=== PATIENT | female | born 1945 | race Caucasian/White ===

== ENCOUNTER 2016-09-10 07:29 | Day surgery (SDC) | payer MEDICARE ==
[2016-08-29 10:48] VITALS: BMI 29.7
[~2016-09-10 07:29] MED LIST: LACTATED RINGERS 1,000 ML IV SCH
[2016-09-10 07:55] VITALS: RESP 18; TEMP 98
[2016-09-10] MEDS ORDERED: MIDAZOLAM 2 MG/2 ML VIAL ONE (08:14)
[2016-09-10] MEDS ORDERED: fentaNYL (PF) 50 MCG/ML 2 ML AMP ONE (08:14)
--- NOTE | 2016-09-10 08:45 | P.PCN ---
Date of Procedure: 09/10/16 Preoperative Diagnosis: Left meralgia paresthetica Postoperative Diagnosis: Same as above Procedure(s) Performed: Left lateral cutaneous femoral nerve block under ultrasound guidance Anesthesia: MAC Surgeon: Nohelia Puga Pathology: none sent Condition: stable Disposition: PACU Description of Procedure: The patient was seen in preop holding area consent was obtained then she was brought into the procedure room and placed in the supine position. Skin was prepped with DuraPrep and draped in a sterile manner. Lidocaine 1% was used to numb the skin up at the target point. I then used ultrasound to try to find the lateral femoral cutaneous nerve on the left side which was found on the lateral edge of the sartorius muscle and superficial to it and deep to the fascia isaias getting . I then used 22-gauge 3-1/2 inch Quincke spinal needle to go through the skin and to infiltrate 5 MLS of Marcaine 0.25% +40 mg of Kenalog around the nerve. Patient tolerated procedure well.
[2016-09-10] MEDS ORDERED: IV FLUID CONTINUATION 1,000 ML IV ONE (09:30)
[2016-09-10 09:37] VITALS: BP 128/65; PULSE 68
== END 2016-09-10 09:31 | disposition home or self-care (01) ==
LOC: ORPAIN 07:29
PROVIDERS: ATTEND Anesthesiology
DX: G57.12 Meralgia paresthetica, left lower limb (principal); E66.9 Obesity, unspecified; Z68.29 Body mass index [BMI] 29.0-29.9, adult; Z88.2 Allergy status to sulfonamides
CPT/HCPCS: 64447; 76942; J2250; J3010

== ENCOUNTER → 2016-11-12 | Outpatient (CLI) | payer MEDICARE ==
--- NOTE | 2016-11-12 10:53 | WWHP ---
DATE OF SERVICE: 11/12/2016 CHIEF COMPLAINT: The patient is here for her routine gynecologic exam and mammogram. HPI: This is a 71-year-old, G2, P2 with an LMP of 1988. The patient is without gynecologic complaints. PAST MEDICAL HISTORY: Chronic hypertension, arthritis, seasonal allergies, chronic back problems and osteopenia. MEDICATIONS: 1. Atenolol 100 mg daily. 2. Enalapril 5 mg daily. 3. Calcium supplement 600 mg daily. 4. Multivitamin 1 daily. Allergies to SULFA. PAST SURGICAL HISTORY: D&C in 2010, ankle surgery in the past, colonoscopy 2002 and 2014 and wisdom teeth removed in 2015. 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 Family history is unchanged from the 2013 H&P. SOCIAL HISTORY: She denies tobacco and drug use and infrequently drinks alcohol. She has been a since 1996 and is not seeing anybody at this time. REVIEW OF SYSTEMS: She has lost about 24 pounds over the last year. She denies respiratory, cardiac, or GI problems. : She occasionally cannot get to the bathroom quick enough and can leak urine in this manner. She denies maltreatment or falling. PHYSICAL EXAM: Blood pressure 124/81. Height 5 feet 6 inches. Weight 191 pounds. Temperature 97.4, pulse 79. This a well-developed, well-nourished white female who is alert and oriented x3 in no acute distress. HEENT is within normal limits. NECK: Supple without mass or thyromegaly. CHEST AND LUNGS: Clear to auscultation. HEART: Regular rate and rhythm. Breasts are without mass or discharge. Axillary exam is negative for adenopathy. BACK: Negative for CVA tenderness. ABDOMEN: Soft, nontender without palpable masses. PELVIC EXAM: External genitalia reveals mild to moderate atrophy without lesions. Cervix and vagina reveal mild to moderate atrophy without lesions. There is no evidence of prolapse. The uterus is midposition, nongravid size and nontender. There are no palpable adnexal masses or tenderness. Rectovaginal exam is negative for mass or tenderness and is negative for occult blood. EXTREMITIES: Nontender. IMPRESSION: 1. A 71-year-old menopausal female with normal gynecologic exam. 2. Osteopenia. PLAN: 1. Pap smear was deferred, since she had a normal one last year. 2. Self breast examination was discussed. 3. Mammogram will be done today. 4. Osteoporosis prevention was discussed. Will plan on repeating bone density test in approximately 2 years. 5. She did receive her flu shot this past fall. 6. She will return in one year.
--- NOTE | 2016-11-13 11:11 | MM ---
Reason for exam: screening (asymptomatic). Last mammogram was performed 1 year and 1 month ago. History: Patient is postmenopausal. Family history of breast cancer in mother at age 52. Physical Findings: A clinical breast exam by your physician is recommended on an annual basis and results should be correlated with mammographic findings. MG 3D Screening Mammo W/Cad Bilateral CC and MLO view(s) were taken. Prior study comparison: October 17, 2015, bilateral MG screening mammo w CAD. August 30, 2013, bilateral digital screening mammo w/CAD. The breast tissue is almost entirely fat. No significant changes when compared with prior studies. ASSESSMENT: Benign, BI-RAD 2 RECOMMENDATION: Routine screening mammogram of both breasts in 1 year.
== END | disposition home or self-care (01) ==
LOC: WWCWWP 09:52
PROVIDERS: ATTEND Obstetrics & Gynecology
DX: Z12.31 Encounter for screening mammogram for malignant neoplasm of breast (principal); I10 Essential (primary) hypertension; M19.90 Unspecified osteoarthritis, unspecified site; M85.80 Other specified disorders of bone density and structure, unspecified site; Z88.2 Allergy status to sulfonamides; Z78.0 Asymptomatic menopausal state; Z80.3 Family history of malignant neoplasm of breast; Z79.899 Other long term (current) drug therapy
CPT/HCPCS: 77063; G0202

== ENCOUNTER 2016-12-23 08:12 | Day surgery (SDC) | payer MEDICARE ==
[2016-12-22 10:32] VITALS: BMI 30.5
[2016-12-23] MEDS ORDERED: LIDOCAINE 1% 20 ML VIAL (10MG/ML) FOR IV START INTRADERMA ONE (08:25)
[2016-12-23 08:43] VITALS: RESP 16; TEMP 98.5
[2016-12-23] MEDS ORDERED: MIDAZOLAM 2 MG/2 ML VIAL ONE (09:44)
[2016-12-23] MEDS ORDERED: BUPIVACAINE (PF) 0.5% 30 ML VIAL ONE (09:44)
[2016-12-23] MEDS ORDERED: TRIAMCINOLONE ACETONIDE 40 MG/ML 1 ML VIAL ONE (09:44)
[2016-12-23] MEDS ORDERED: fentaNYL (PF) 50 MCG/ML 2 ML AMP ONE (09:44)
[2016-12-23] MEDS ORDERED: IV FLUID CONTINUATION 1,000 ML IV ONE (10:15)
--- NOTE | 2016-12-23 10:18 | P.PCN ---
Date of Procedure: 12/23/16 Procedure(s) Performed: Preoperative diagnoses= 1-left meralgia paresthetica 2-lumbar spondylosis Postoperative diagnoses= same as preoperative diagnosis. Procedure= left lateral femoral cutaneous nerve block with ultrasound guidance Anesthesia= conscious sedation with Versed 1 mg and fentanyl 50 micrograms and local infiltration with lidocaine 1% 2 ml Estimated blood loss=minimal. Procedure indication= the patient had a history of severe chronic low back pain , and left lower extremity pain and numbness and tingling sensation, diagnosed with left meralgia paresthetica, and lumbar spondylosis unresponsive to conservative treatment , patient had left side lateral femoral cutaneous nerves done a few weeks ago and she had excellent pain relief for several weeks and she is here today to have , a second injection Procedure description= the patient was seen and identified in the preoperative holding area, risks and benefits and alternative of the procedure and possible complications discussed with the patient, and he agreed with the preceding, patient signed the consent, an IV was started, and vital signs were monitored and were stable throughout the procedure, patient was placed in the supine position or table and the left groin and abdominal area ,was prepped and draped with a sterile fashion, vital signs were closely monitored during the procedure , the ultrasound probe used to identify the left lateral femoral cutaneous nerve , which was located at the lateral edge of the left side.sartorius muscle , local infiltration of the skin and subcutaneous tissue with lidocaine 1% 2 mL then a 20-gauge block needle advanced slowly under ultrasound and passed through the fascia acosta, and the temporalis superficial and lateral to the sartorius muscle, , and after appropriate needle placement confirmed , and after negative aspiration for heme and CSF and there was no paresthesia during the injection, 5 ml of Marcaine 0.5% and 40 mg of Kenalog injected after negative aspiration, the needle removed, Patient tolerated the procedure well without any complication, after the the block area was cleaned and a Band-Aid applied, the patient transported to recovery room in stable condition and he was monitored for 30 minutes before he was discharged home and then patient was reexamined before going home and patient was discharged in stable condition and patient will follow up with the pain clinic in a few weeks
[2016-12-23 10:33] VITALS: BP 136/70; PULSE 59
== END 2016-12-23 10:56 | disposition home or self-care (01) ==
LOC: ORPAIN 08:12
PROVIDERS: ATTEND Specialist
DX: G89.29 Other chronic pain (principal); G57.12 Meralgia paresthetica, left lower limb; M47.9 Spondylosis, unspecified; Z88.2 Allergy status to sulfonamides
CPT/HCPCS: 64447; 99152; J2250; J3301; J3010

== ENCOUNTER → 2017-02-09 | Outpatient (CLI) | payer MEDICARE ==
[2017-02-09 12:56] VITALS: BP 141/88; PULSE 97; RESP 18; TEMP 97.5
--- NOTE | 2017-02-09 13:14 | P.PN ---
Progress Note - Text Patient returns for followup for chronic back pain with radiation to LLE. Patient recently underwent lateral femoral cutaneous NB x 2, which provided some relief for 1-2 weeks' interval apiece. Patient continues on ibuprofen OTC medications for pain with good relief. Patient denies adverse drug effects from medications. Today, pt denies new-onset weakness, bowel/bladder incontinence, or any other signs or symptoms of cauda equina syndrome. There are no signs of acute intoxication, and no indications of medication diversion or overuse. In addition to above, 13-point review of systems is also negative for chest pain , shortness of breath, changes in vision, changes in hearing, new onset weakness , abdominal pain, diarrhea, extreme fatigue, malaise, fever, skin changes, homicidal or suicidal ideation, or bowel or bladder incontinence. Vital Signs: Reviewed in EMR Gen: WDWN, AAOx3, NAD HEENT: NCAT, EOMI, hearing grossly normal Pulm: resp unlabored Abd: soft, NT, ND Neck: supple, trachea midline ROM in flexion lumbar spine: reduced ROM in extension lumbar spine: reduced Lumbar paravertebral tenderness: + Facet loading: + bilateral, R > L SI joint tenderness: R > L Ryan's test: R > L Straight leg raise: + LLE at 10 degrees Lower extremity: decreased strength dorsi/plantarflexion LLE compared to RLE Neuro: CN II-XII grossly intact, muscle strength lower extremities PRESERVED Imaging: Reviewed in EMR Assessment: 1. lumbar spinal stenosis 2. lumbar spondylosis 3. lumbar neural foraminal stenosis Plan: 1. Explanation: Opioid and psychological risk scores were reviewed. Diagnoses , prognoses, and multiple treatment options including but not limited to physical therapy, interventional therapies, adjuvant medical therapies, narcotic medication therapies, and surgery were discussed with the patient and all questions were answered to the patient's satisfaction. 2. Opioid agreement: no opioids prescribed today 3. Counseling: The patient was counseled extensively on SMOKING CESSATION, BODY MASS INDEX, EXERCISE. Specifically, the patient was instructed regarding the importance of smoking cessation, obesity, and exercise in the context of both chronic pain and overall health. 4. Procedures: LESI (left paramedian approach) 5. Consultations: None 6. Investigations: None 7. Medications: none prescribed 8. Disposition: f/u for procedure as scheduled PQRS measures: 1-Patient's medications are documented in the chart. 2-Tobacco use is negative 3-Patient has not had a pneumococcal vaccine. 4-Advanced care planning discussed, patient unable to give. 5-Opioid contract signed with the patient. 6-Pain positive, follow-up visit or procedure scheduled 7-Patient's blood pressure measured and documented, and patient will follow up with the primary care due to hypertension. 8-Patient's weight was measured, and body mass index ABOVE the normal limits, and counseling was done. Patient instructed to follow up with PCP. 9-Patient WAS NOT identified as an unhealthy alcohol user.
== END ==
LOC: PNWHC3 12:22
PROVIDERS: ATTEND Anesthesiology
DX: M48.06 Spinal stenosis, lumbar region (principal); M99.73 Connective tissue and disc stenosis of intervertebral foramina of lumbar region; M47.816 Spondylosis without myelopathy or radiculopathy, lumbar region; G89.29 Other chronic pain; Z79.891 Long term (current) use of opiate analgesic
CPT/HCPCS: 99211

== ENCOUNTER 2017-03-12 06:20 | Day surgery (SDC) | payer MEDICARE ==
[2017-03-06 11:59] VITALS: BMI 30.5
[2017-03-12 06:38] VITALS: RESP 16; TEMP 97
[2017-03-12] MEDS ORDERED: LIDOCAINE 1% 20 ML VIAL (10MG/ML) FOR IV START INTRADERMA ONE (06:40)
[2017-03-12] MEDS ORDERED: DEXAMETHASONE SOD PHOS (MDV) 100 MG/10 ML VIAL ONE (07:09)
[2017-03-12] MEDS ORDERED: IOHEXOL 180 MG/ML 1 ML ML ONE (07:09)
[2017-03-12] MEDS ORDERED: fentaNYL (PF) 50 MCG/ML 2 ML AMP ONE (07:09)
[2017-03-12] MEDS ORDERED: MIDAZOLAM 2 MG/2 ML VIAL ONE (07:09)
--- NOTE | 2017-03-12 07:23 | P.PCN ---
Date of Procedure: 03/12/17 Preoperative Diagnosis: Postoperative Diagnosis: Procedure(s) Performed: PREOPERATIVE DIAGNOSIS: 1- Lumbar spinal stenosis. 2-Lumbar spondylosis with Facet arthropathy without myelopathy POSTOPERATIVE DIAGNOSIS: 1-Lumber spinal stenosis 2-Lumbar spondylosis with Facet arthropathy without myelopathy PROCEDURE 1. Lumbar epidural steroid injection under fluoroscopic guidance at the L4-5 level.(left paramedial approach ) 2. Lumbar epidurogram. ANESTHESIA: Local with 1% lidocaine 3 ml and IV sedation with Versed 1 mg , and fentanyle 50 Mcg EBL: Minimal PROCEDURE INDICATION: The patient with low back pain and radiculitis symptoms unresponsive to conservative treatment. Fluoroscopy was used to optimize visualization of the needle placement and to maximize safety. PROCEDURE DESCRIPTION / TECHNIQUE: The patient was seen and identified in the preoperative area. Risks, benefits , complications including but not limited to infections ,bleeding ,allergic reaction to the medications ,nerve damage and not complete pain releife , and alternatives were discussed with the patient. The patient agreed to proceed with the procedure and signed the consent. IV was started, and vital signs were stable. Patient was taken to the OR and time out was completed. The patient was placed in the prone position on procedure table and a pillow was placed under the abdomen to reduce lumbar lordosis. The lumbosacral area was prepped and draped in the usual sterile fashion.ere closely monitored during the procedure. Conscious sedation was used during the procedure to decrease patients anxiety. Vital signs was monitered during the entire procedure. Using anterior-posterior fluoroscopy, the L4-5 interlaminar space was identified and the skin over this site was marked and then infiltrated with 1% lidocaine subcutaneously. Subsequently, a 20-gauge Tuohy epidural needle was inserted and advanced toward the epidural space using the ``Loss of resistance technique and guided by AP and lateral fluoroscopy. The correct needle position in the left side of the epidural space was verified with the injection of 2 mL of the water soluble contrast dye Omnipaque 180 contrast and observing an excellent epidurogram with the epidural spread of the dye, after negative aspiration for blood and CSF and in the absence of paresthesias. Again after negative aspiration, a 6 ml mixture containing 20 mg of Dexamethasone and 2 ml of preservative free Normal Saline, and 2 ml of preservative free lidocaine 1 % solution was injected and a washout of epidurogram was seen. Needle was withdrawn intact, skin was cleansed, and bandages were applied. COMPLICATIONS: None DISPOSITION / PLANS: The patient was placed in a supine position and transferred to the recovery area in a stable condition for observation. There was no evidence of lower extremity motor or sensory deficit after the procedure. Patient was discharged from the recovery room after meeting discharge criteria. Home discharge instructions were given to the patient by the staff. The patient was reexamined prior to discharge. The patient will schedule a follow up in the clinic in 2-4 weeks. Implants: Indications for Procedure: Operative Findings: Description of Procedure:
[2017-03-12] MEDS ORDERED: IV FLUID CONTINUATION 1,000 ML IV ONE (07:25)
--- NOTE | 2017-03-12 07:30 | FL ---
FLUOROSCOPY 4 seconds of fluoroscopy time were utilized during Pain Injection. 1 images document the procedure.
[2017-03-12 07:40] VITALS: BP 121/70; PULSE 80
== END 2017-03-12 07:55 | disposition home or self-care (01) ==
LOC: ORPAIN 06:20
PROVIDERS: ATTEND Specialist
DX: M48.06 Spinal stenosis, lumbar region (principal); M47.26 Other spondylosis with radiculopathy, lumbar region; M46.96 Unspecified inflammatory spondylopathy, lumbar region; Z88.2 Allergy status to sulfonamides
CPT/HCPCS: 62323; J2250; Q9965; J3010; J1100

== ENCOUNTER 2017-04-07 08:50 | Day surgery (SDC) | payer MEDICARE ==
[2017-04-03 14:11] VITALS: BMI 30.5
[~2017-04-07 08:50] MED LIST changes: +LACTATED RINGERS 1,000 ML IV ONE; -LACTATED RINGERS 1,000 ML IV SCH
[2017-04-07 09:14] VITALS: RESP 16; TEMP 97.8
[2017-04-07] MEDS ORDERED: LIDOCAINE 1% 20 ML VIAL (10MG/ML) FOR IV START SQ ONE (09:23)
--- NOTE | 2017-04-07 10:16 | P.PCN ---
Date of Procedure: 04/07/17 Preoperative Diagnosis: Lumbar stenosis Postoperative Diagnosis: Lumbar stenosis Procedure(s) Performed: Lumbar epidural steroid injection under fluoroscopic guidance Implants: Anesthesia: other (Moderate conscious sedation with 50 g of fentanyl IV and 0.5 mg of Versed) Surgeon: Nohelia Puga Pathology: none sent Condition: stable Disposition: PACU Indications for Procedure: Operative Findings: Description of Procedure: The patient was seen in preoperative holding area consent was obtained then she was brought into the procedure room and placed in prone position. The skin was prepped with Betadine 3 and draped in a sterile manner. Lidocaine 1% was used to numb the skin up at the target point that was at the L3-4 level in the left paramedian approach. I used 18-gauge 6 inch Touhy epidural needle with loss-of- resistance to air to identify the epidural space. There was positive loss-of- resistance to air at about 10 cm from skin negative aspiration for any CSF or blood and negative paresthesia I then injected 1 mL of Omnipaque which showed typical epidurogram with AP and lateral views of fluoroscopy after that I injected 40 mg of Kenalog +2 MLS of Marcaine 0.25% +4 MLS of preservative free normal saline to a total volume of 7 MLS in epidural space. Patient tolerated procedure well.
[2017-04-07] MEDS ORDERED: IV FLUID CONTINUATION 1,000 ML IV ONE (10:25)
--- NOTE | 2017-04-07 10:33 | FL ---
Fluoroscopy INDICATION: Pain FINDINGS: Fluoroscopy time: 10 seconds. Images obtained: 2. IMPRESSIONS: 1. Documentation of fluoroscopy.
[2017-04-07 10:40] VITALS: BP 141/70; PULSE 70
== END 2017-04-07 10:57 | disposition home or self-care (01) ==
LOC: ORPAIN 08:50
PROVIDERS: ATTEND Anesthesiology
DX: M48.06 Spinal stenosis, lumbar region (principal); I10 Essential (primary) hypertension; Z88.2 Allergy status to sulfonamides
CPT/HCPCS: 62323; 99152; J2250; J3301; Q9965; J3010; 99153

== ENCOUNTER 2017-05-06 10:05 | Day surgery (SDC) | payer MEDICARE ==
[2017-05-04 10:03] VITALS: BMI 30.5
[~2017-05-06 10:05] MED LIST changes: -LACTATED RINGERS 1,000 ML IV ONE; +LACTATED RINGERS 1,000 ML IV SCH
[2017-05-06 10:16] VITALS: RESP 16; TEMP 98.4
[2017-05-06] MEDS ORDERED: LIDOCAINE 1% 20 ML VIAL (10MG/ML) FOR IV START INTRADERMA ONE (10:29)
--- NOTE | 2017-05-06 11:24 | P.PCN ---
Date of Procedure: 05/06/17 Preoperative Diagnosis: Postoperative Diagnosis: Procedure(s) Performed: Implants: Indications for Procedure: Operative Findings: Description of Procedure: Preoperative Diagnosis: Lumbar stenosis Postoperative Diagnosis: Lumbar stenosis Procedure(s) Performed: Lumbar epidural steroid injection under fluoroscopic guidance Implants: Anesthesia: other (Moderate conscious sedation with 25 g of fentanyl IV and 0.5 mg of Versed) Surgeon: Nohelia Puga Pathology: none sent Condition: stable Disposition: PACU Description of Procedure: The patient was seen in preoperative holding area consent was obtained then she was brought into the procedure room and placed in prone position. The skin was prepped with Betadine 3 and draped in a sterile manner. Lidocaine 1% was used to numb the skin up at the target point that was at the L3-4 level in the left paramedian approach. I used 18-gauge 6 inch Touhy epidural needle with loss-of- resistance to air to identify the epidural space. There was positive loss-of- resistance to air at about 10 cm from skin negative aspiration for any CSF or blood and negative paresthesia I then injected 1 mL of Omnipaque which showed typical epidurogram with AP and lateral views of fluoroscopy after that I injected 40 mg of Kenalog +2 MLS of Marcaine 0.25% +4 MLS of preservative free normal saline to a total volume of 7 MLS in epidural space. Patient tolerated procedure well.
[2017-05-06] MEDS ORDERED: IV FLUID CONTINUATION 1,000 ML IV ONE (11:35)
--- NOTE | 2017-05-06 11:39 | FL ---
EXAMINATION TYPE: FL guided pain mgmt statistic DATE OF EXAM: 05/06/2017 COMPARISON: NONE HISTORY: Lumbar pain TECHNIQUE: Fluoroscopy. FINDINGS/IMPRESSION: Fluoroscopic guidance was provided during procedure performed by Dr. Puga. A total of 19 seconds of fluoroscopic time was utilized during the procedure and 2 spot images was ac quired.
[2017-05-06 11:47] VITALS: BP 119/63; PULSE 64
== END 2017-05-06 12:01 | disposition home or self-care (01) ==
LOC: ORPAIN 10:05
PROVIDERS: ATTEND Anesthesiology
DX: M48.06 Spinal stenosis, lumbar region (principal); I10 Essential (primary) hypertension; Z88.2 Allergy status to sulfonamides
CPT/HCPCS: 62323; 99152; J2250; J3301; Q9965; J3010

== ENCOUNTER → 2017-05-21 | Outpatient (CLI) | payer MEDICARE ==
[2017-05-21 11:11] VITALS: BP 166/92; PULSE 67; RESP 18; TEMP 99.3
--- NOTE | 2017-05-21 11:21 | P.PN ---
Progress Note - Text Patient returns for followup for chronic back pain with radiation to LLE. Patient recently underwent LESI x 3 which has given her excellent relief after all three injections. Patient continues on ibuprofen OTC medications for pain with good relief. Patient denies adverse drug effects from medications. Today , pt denies new-onset weakness, bowel/bladder incontinence, or any other signs or symptoms of cauda equina syndrome. There are no signs of acute intoxication, and no indications of medication diversion or overuse. In addition to above, 13-point review of systems is also negative for chest pain , shortness of breath, changes in vision, changes in hearing, new onset weakness , abdominal pain, diarrhea, extreme fatigue, malaise, fever, skin changes, homicidal or suicidal ideation, or bowel or bladder incontinence. Vital Signs: Reviewed in EMR Gen: WDWN, AAOx3, NAD HEENT: NCAT, EOMI, hearing grossly normal Pulm: resp unlabored Abd: soft, NT, ND Neck: supple, trachea midline ROM in flexion lumbar spine: reduced ROM in extension lumbar spine: reduced Lumbar paravertebral tenderness: + Facet loading: + bilateral SI joint tenderness: + LLE Ryan's test: neg Straight leg raise: + LLE at 5 degrees Neuro: CN II-XII grossly intact, muscle strength lower extremities PRESERVED Imaging: Reviewed in EMR Assessment: 1. lumbar spinal stenosis 2. lumbar spondylosis 3. lumbar neural foraminal stenosis Plan: 1. Explanation: Opioid and psychological risk scores were reviewed. Diagnoses , prognoses, and multiple treatment options including but not limited to physical therapy, interventional therapies, adjuvant medical therapies, narcotic medication therapies, and surgery were discussed with the patient and all questions were answered to the patient's satisfaction. 2. Opioid agreement: no opioids prescribed today 3. Counseling: The patient was counseled extensively on BODY MASS INDEX, EXERCISE. Specifically, the patient was instructed regarding the importance of obesity, and exercise in the context of both chronic pain and overall health. 4. Procedures: none for now 5. Consultations: None 6. Investigations: None 7. Medications: none prescribed 8. Disposition: f/u as needed. Patient can call and schedule further LESIs as needed. PQRS measures: 1-Patient's medications are documented in the chart. 2-Tobacco use is negative 3-Patient has not had a pneumococcal vaccine. 4-Advanced care planning discussed, patient unable to give. 5-Opioid contract signed with the patient. 6-Pain positive, follow-up visit or procedure scheduled 7-Patient's blood pressure measured and documented, and patient will follow up with the primary care due to hypertension. 8-Patient's weight was measured, and body mass index ABOVE the normal limits, and counseling was done. Patient instructed to follow up with PCP. 9-Patient WAS NOT identified as an unhealthy alcohol user.
== END | disposition home or self-care (01) ==
LOC: PNWHC3 10:55
PROVIDERS: ATTEND Anesthesiology
DX: M48.06 Spinal stenosis, lumbar region (principal); M99.73 Connective tissue and disc stenosis of intervertebral foramina of lumbar region; M47.816 Spondylosis without myelopathy or radiculopathy, lumbar region; Z79.1 Long term (current) use of non-steroidal anti-inflammatories (NSAID)
CPT/HCPCS: 99211

== ENCOUNTER → 2017-11-24 | Outpatient (CLI) | payer MEDICARE ==
[2017-11-24 09:29] VITALS: BP 159/83; PULSE 82; RESP 18; TEMP 97.1; BMI 33.0
--- NOTE | 2017-11-24 10:21 | P.HPOB ---
History of Present Illness H&P Date: 11/24/17 Chief Complaint: The patient is here for her routine gynecologic exam and mammogram. This is a 72 year old with LMP of 1988. The patient is without gynecologic complaints and denies any postmenopausal bleeding. Review of Systems Patient has gained about 14 pounds over the last year. She denies respiratory, cardiac, or G.I. problems. She denies maltreatment or falling. she infrequently has small amount of leakage which is not a very big problem for her. Past Medical History Past Medical History: Hypertension, Musculoskeletal Disorder Additional Past Medical History / Comment(s): LT SCIATIC PAIN. Arthritis, seasonal allergies and osteopenia. History of Any Multi-Drug Resistant Organisms: None Reported Past Surgical History: Orthopedic Surgery, Tubal Ligation Additional Past Surgical History / Comment(s): D&C. RT ankle surgery CHILD. PAIN PROCEDURE. Colonoscopy 2002 and 2014. [place] teeth removed in 2015. Past Anesthesia/Blood Transfusion Reactions: Previous Problems w/ Anesthesia Additional Past Anesthesia/Blood Transfusion Reaction / Comment(s): HAD DIFFICULTY WAKING UP WITH ANESTHESIA Past Psychological History: No Psychological Hx Reported Smoking Status: Never smoker Past Alcohol Use History: Rare (Four drinks per year.) Past Drug Use History: None Reported - Past Family History Sister(s) Family Medical History: Cancer (Rectal cancer and MS.) Additional Family Medical History / Comment(s): RECTAL CA , MS Mother Family Medical History: Cancer (Breast cancer.) Additional Family Medical History / Comment(s): BREAST Father Family Medical History: Cancer (Prostate cancer.) Additional Family Medical History / Comment(s): BONE Brother(s) Family Medical History: Cancer (Lung cancer.) Additional Family Medical History / Comment(s): LUNG Medications and Allergies Home Medications Medication Instructions Recorded Confirmed Type Calcium Carbonate/Vitamin D3 1 each PO DAILY 01/18/15 11/24/17 History [Calcium 600 + Vit D Tablet] Enalapril [Vasotec] 5 mg PO QAM 01/18/15 11/24/17 History Multivitamins, Thera [Theragran] 1 each PO DAILY 01/18/15 11/24/17 History Metoprolol Bunch/Hydrochlorothiaz 1 each PO DAILY 11/24/17 11/24/17 History [Metoprolol ER-Hctz 100-12.5 mg] Allergies Allergy/AdvReac Type Severity Reaction Status Date / Time Sulfa (Sulfonamide Allergy Swelling Verified 11/24/17 09:37 Antibiotics) Exam - Vital Signs Vital signs: Vital Signs Temp Pulse Resp BP 11/24/17 09:23 97.1 F L 82 18 159/83 Intake and Output 11/23/17 11/24/17 11/24/17 22:59 06:59 14:59 Other: Weight 92.986 kg Height 5'6". BMI 33. This is a well-developed well-nourished white female who is alert and oriented times 3 in no acute distress. HEENT: Within normal limits. NECK: Supple without mass or thyromegaly. CHEST AND LUNGS: Clear to auscultation. HEART: Regular rate and rhythm. BREASTS: Are without mass or discharge. AXILLARY EXAM: Negative for adenopathy. BACK: Negative for CVA tenderness. ABDOMEN: Soft, nontender, without palpable masses. PELVIC EXAM: Normal external genitalia with mild to moderate atrophy. Cervix and vagina appear normal with moderate atrophy. The cervix is stenotic secondary to atrophy. There is no unusual discharge. There is no evidence of prolapse. The uterus is midposition, nongravid size and nontender. There are no palpable adnexal masses or tenderness. RECTAL EXAM: rectovaginal exam is negative for mass or tenderness and is negative for occult blood. EXTREMITIES: Nontender. IMPRESSION: 1. 72 year old menopausal female with normal gynecologic exam. 2. History of osteopenia. PLAN: 1. Pap smear was performed. 2. Self breast examination was discussed. 3. Screening mammogram will be done today. 4. Osteoporosis prevention was discussed. Bone density screening will be done next year. 5. She did receive a flu shot last fall. 6. She is aware that her blood pressure was elevated today. She will do home blood pressure checks and follow-up with Dr. Coates for blood pressure elevations. 7. She will return in one year.
--- NOTE | 2017-11-25 12:57 | MM ---
Reason for exam: screening (asymptomatic). Last mammogram was performed 1 year ago. History: Patient is postmenopausal. Family history of breast cancer in mother at age 52. Physical Findings: A clinical breast exam by your physician is recommended on an annual basis and results should be correlated with mammographic findings. MG 3D Screening Mammo W/Cad Bilateral CC and MLO view(s) were taken. Prior study comparison: November 12, 2016, bilateral MG 3d screening mammo w/cad. October 17, 2015, bilateral MG screening mammo w CAD. The breast tissue is almost entirely fat. Finding: There are typically benign round calcifications in both breasts. There is a chronic nodularity in the left breast, skin lesions. There is no discrete abnormality. ASSESSMENT: Benign, BI-RAD 2 RECOMMENDATION: Routine screening mammogram of both breasts in 1 year.
== END | disposition home or self-care (01) ==
LOC: WWCWWP 09:02
PROVIDERS: ATTEND Obstetrics & Gynecology
DX: Z12.31 Encounter for screening mammogram for malignant neoplasm of breast (principal)
CPT/HCPCS: 77063; 77067

== ENCOUNTER → 2018-11-30 | Outpatient (CLI) | payer MEDICARE ==
[2018-11-30 09:33] VITALS: BP 135/90; PULSE 87; RESP 16; TEMP 98; BMI 33.9
--- NOTE | 2018-11-30 10:27 | P.HPOB ---
History of Present Illness H&P Date: 11/30/18 Chief Complaint: The patient is here for her routine gynecologic exam and ma mmogram. This is a 73-year-old with an LMP of 1988. The patient is without gynecologic complaints and denies any postmenopausal bleeding. The patient had a previous abnormal Pap smear showing ascus on 11/24/2017. Reflex high-risk HPV testing was negative. Review of Systems She is getting about 4 pounds over the last year. She denies respiratory, cardiac and G.I. problems. She denies maltreatment or problems with falling. : she denies any significant problems with urinary leakage, but she states if she does not empty her bladder completely, she can have a small amount of leakage immediately after getting off the toilet. Past Medical History Past Medical History: Hypertension, Musculoskeletal Disorder Additional Past Medical History / Comment(s): LT SCIATIC PAIN. Arthritis, seasonal allergies and osteopenia. 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 She did have a cold knife colonization of the search for high grade changes Pap smear [id number]. History of Any Multi-Drug Resistant Organisms: None Reported Past Surgical History: Orthopedic Surgery, Tubal Ligation Additional Past Surgical History / Comment(s): H/S, D&C and CKC of cervix 2010. RT ankle surgery CHILD. PAIN PROCEDURE. Colonoscopy 2002 and 2014. Onward teeth removed in 2015. Past Anesthesia/Blood Transfusion Reactions: Previous Problems w/ Anesthesia Additional Past Anesthesia/Blood Transfusion Reaction / Comment(s): HAD DIFFICULTY WAKING UP WITH ANESTHESIA Past Psychological History: No Psychological Hx Reported Smoking Status: Never smoker Past Alcohol Use History: Rare (6 per year) Past Drug Use History: None Reported Additional History: She has been a since 1996 and is not seeing anybody at this time. - Past Family History Sister(s) Family Medical History: Cancer Additional Family Medical History / Comment(s): RECTAL CA , MS Mother Family Medical History: Cancer Additional Family Medical History / Comment(s): BREAST CA Father Family Medical History: Cancer Additional Family Medical History / Comment(s): Prostate CA with bone CA. Brother(s) Family Medical History: Cancer Additional Family Medical History / Comment(s): LUNG Medications and Allergies Home Medications Medication Instructions Recorded Confirmed Type Calcium Carbonate/Vitamin D3 1 each PO DAILY 01/18/15 11/30/18 History [Calcium 600 + Vit D Tablet] Enalapril [Vasotec] 5 mg PO QAM 01/18/15 11/30/18 History Multivitamins, Thera [Theragran] 1 each PO DAILY 01/18/15 11/30/18 History Metoprolol Bunch/Hydrochlorothiaz 1 each PO DAILY 11/24/17 11/30/18 History [Metoprolol ER-Hctz 100-12.5 mg] Fish Oil/Dha/Epa [Fish Oil 1,200 1 each PO 11/30/18 History mg Fish Oil] Allergies Allergy/AdvReac Type Severity Reaction Status Date / Time Sulfa (Sulfonamide Allergy Swelling Verified 11/30/18 09:34 Antibiotics) Exam Vital Signs Temp Pulse Resp BP Pulse Ox 11/30/18 09:24 98.0 F 87 16 135/90 98 Intake and Output 11/29/18 11/30/18 11/30/18 22:59 06:59 14:59 Other: Weight 95.254 kg Height 5'6", weight 210 pounds, BMI 34. This is a well-developed well-nourished white female who is alert and oriented times 3 in no acute distress. HEENT: Within normal limits. NECK: Supple without mass or thyromegaly. CHEST AND LUNGS: Clear to auscultation. HEART: Regular rate and rhythm. BREASTS: Are without mass or discharge. AXILLARY EXAM: Negative for adenopathy. BACK: Negative for CVA tenderness. ABDOMEN: Soft, nontender, without palpable masses. PELVIC EXAM: Normal external genitalia with moderate atrophy. Cervix and vagina appear normal with moderate atrophy. The service is fairly flush with the back of the vagina consistent with previous colonization of the cervix and atrophy. There are no cervical lesions. There is no unusual discharge. There is no evidence of prolapse. The uterus is midposition, nongravid size and nontender. There are no palpable adnexal masses or tenderness. RECTAL EXAM: rectovaginal exam is negative for mass or tenderness and is negative for occult blood. EXTREMITIES: Nontender. IMPRESSION: 1. 73-year-old menopausal female with normal gynecologic exam. 2. Previous ascus Pap smear with negative high-risk HPV reflex testing last year. 3. History of osteopenia PLAN: 1. Pap smear with high-risk HPV testing(co-test) was obtained today. 2. Self breast awareness was discussed with the patient. 3. Screening mammogram will be done today. 4. Osteoporosis prevention was discussed. I have stressed the importance of adequate calcium, vitamin D and regular exercise. Recommended amounts of calcium and vitamin D were also discussed. Bone density testing will be done today. 5. She did receive a flu shot this past fall. 6. She will return in one year.
--- NOTE | 2018-11-30 13:07 | BD ---
EXAMINATION TYPE: Axial Bone Density DATE OF EXAM: 11/30/2018 COMPARISON: 10.17.2015 CLINICAL HISTORY: 73 YR OLD FEMALE....ICD-10 CODE: Z78.0 POST MENOPAUSAL Height: 64.4 Weight: 207 FRAX RISK QUESTIONS: NOTHING ADDITIONAL TO NOTE HERE RISK FACTORS HISTORY OF: Postmenopausal woman: YES AT AGE 54 Lost more than 2 inches in height since high school: YES MEDICATIONS: Additional Medications: BP MEDS, CALCIUM WITH D, REFLUX MEDS PRN, Additional History: ARTHRITIS IN BACK, WALKS WITH UNEVEN GAIT, RT HIP HIGHER THAN LT EXAM MEASUREMENTS: Bone mineral densitometry was performed using the UpTo System. Bone mineral density as measured about the Lumbar spine is: ----- L1-L4(G/cm2): 1.529 T Score Values are as follows: ----- L1: 2.3 ----- L2: 3.6 ----- L3: 3.4 ----- L4: 2.3 ----- L1-L4: 2.9 Bone mineral density has: Decreased -1.1ince study of: 10.17.2015 Bone mineral density about the R hip (g/cm2): 0.871 Bone mineral density about the L hip (g/cm2): 1.073 T Score values are as follows: -----R Neck: -0.9 -----L Neck: -0.3 -----R Total: -1.1 -----L Total: 0.5 Bone mineral density has: Decreased -3.3ince study of: 10.17.2015 FRAX%s: THERE IS A 8.1% CHANCE FOR A MAJOR OSTEOPOROTIC FX AND A 0.8% FOR HIP.....PROBABILITY OF FX IN 10 YRS TIME IMPRESSION: Osteopenia (T Score between -2.5 and -1). There is slightly increased risk of fracture and the patient may be considered for treatment. Re-Screen 2-5 years. NOTE: T-SCORE=SD OF THE YOUNG ADULT MEAN.
--- NOTE | 2018-11-30 13:30 | MM ---
Reason for exam: screening (asymptomatic). Last mammogram was performed 1 year ago. History: Patient is postmenopausal. Family history of breast cancer in mother at age 52. Took hormonal contraceptives for 9 years. Physical Findings: A clinical breast exam by your physician is recommended on an annual basis and results should be correlated with mammographic findings. MG 3D Screening Mammo W/Cad Bilateral CC and MLO view(s) were taken. Prior study comparison: November 24, 2017, bilateral MG 3d screening mammo w/cad. November 12, 2016, bilateral MG 3d screening mammo w/cad. There are scattered fibroglandular densities. No suspicious abnormality. No significant changes when compared with prior studies. ASSESSMENT: Negative, BI-RAD 1 RECOMMENDATION: Routine screening mammogram of both breasts in 1 year.
== END ==
LOC: WWCWWP 09:14
PROVIDERS: ATTEND Obstetrics & Gynecology
DX: Z12.31 Encounter for screening mammogram for malignant neoplasm of breast (principal); M85.80 Other specified disorders of bone density and structure, unspecified site; Z78.0 Asymptomatic menopausal state
CPT/HCPCS: 77063; 77067; 77080

== ENCOUNTER → 2019-10-19 | Day surgery (SDC) | payer MEDICARE, OTHER ==
[2019-10-17 15:12] VITALS: BMI 32.8
[~2019-10-19] MED LIST changes: +BALANCED SALT IRRIG SOLN COMB2 15 ML IRRIG.SOLN INTRAOCULA ONE; +DEXAMETHASONE SOD PHOSPHATE 10 MG/ML 1 ML VIAL IV ONE; +EPINEPHrine (PF) 0.3 ML in BALANCED SALT IRRIG SOLN COMB2 500 ML IRRIGATION ONE; +HYALURONATE SODIUM INTRAOCULAR 1 EACH SYRINGE (12MG/ML) INTRAOCULA ONE; +LIDOCAINE 1% (PF) 10MG/ML VIAL MISCELLANE ONE; +LIDOCAINE 1% 20 ML VIAL (10MG/ML) FOR IV START INTRADERMA PRN; +MIDAZOLAM 2 MG/2 ML VIAL ONE; +MOXIFLOXACIN HCL 0.5% DROPS 3 ML BTL OP ONE; +ONDANSETRON 4 MG/2 ML VIAL IVP ONE; +TETRACAINE 0.5% OPHTH (PF) DROPS 4 ML BTL OP ONE; +TIMOLOL 0.5% OPHTH DROPS 5 ML BTL OP ONE; +fentaNYL (PF) 50 MCG/ML 2 ML AMP ONE
[2019-10-19] MEDS: CYCLOPENTOLATE 1% OPHTH SOLN 2 ML BTL OP ONE ×3 (12:20→12:34)
[2019-10-19] MEDS: PHENYLEPHRINE 2.5% OPHTH DRP 2ML OP NR ×3 (12:24→12:42)
[2019-10-19 12:28] VITALS: RESP 16; TEMP 97.4
--- NOTE | 2019-10-19 14:07 | P.OP ---
Date of Procedure: 10/19/19 Preoperative Diagnosis: NS & CS & Reg astig Postoperative Diagnosis: same Procedure(s) Performed: PIOL, OD Implants: BL1UT 18 x 12.5 Anesthesia: MAC Surgeon: Rahat Baptiste Pathology: none sent Condition: stable Disposition: same day Indications for Procedure: blurry vision Operative Findings: no complications
[2019-10-19 14:36] VITALS: BP 115/55; PULSE 65
--- NOTE | 2019-10-20 06:57 | OP ---
OPERATIVE REPORT DATE OF SURGERY: October 19, 2019. PROCEDURE: Phacoemulsification of cataract and intraocular lens implant of the right eye. PREOPERATIVE DIAGNOSES: Nuclear sclerosis, cortical sclerosis and regular astigmatism. POSTOPERATIVE DIAGNOSES: Nuclear sclerosis, cortical sclerosis and regular astigmatism. SURGEON: Dr. Rahat Baptiste. ANESTHESIA: Topical. ESTIMATED BLOOD LOSS: None. SPECIMEN TAKEN: None. NARRATIVE: After obtaining the appropriate consent, the patient was brought to the operating room. There she was asked to sit upright and the axes 0 and 180 degrees were identified and marked on the patient's cornea using a gentian eulogio marker. She was then placed in the proper supine position under cardiac monitoring, prepped and draped in the usual sterile manner. She was approached from her right temporal side. Using previously acquired corneal topography information, the axis of 170 degrees was identified and marked with a corneal marking instrument. This was followed by using an MVR blade at the 11 o'clock position to create a paracentesis port. Through this opening, 1% Xylocaine MPF 50:50 mix with balanced salt solution was injected into the anterior chamber. This was followed by stabilization of the anterior chamber with Amvisc. At the 9 o'clock position a 2.75 mm clayton keratome was used to create a self-sealing flap incision in a Langerman's fashion. Through this opening, a cystotome was introduced to begin a continuous tear capsulorrhexis which was then completed using the Utrata forceps. Care was taken to ensure that the size of the ring was at least 5.5 mm in diameter, which was confirmed by the Naomi ring which had been previously placed on the patient's cornea. Hydrodissection and hydrodelineation of the lens was accomplished with balanced salt solution. Phacoemulsification of the lens utilizing phaco chop was accomplished in 11.7 seconds at 14% power. Additional Xylocaine MPF was instilled into the anterior chamber. This was followed by removal of the remaining cortex under irrigation and aspiration along with careful polishing of the posterior capsule in the capsule vacuum mode. Additional Amvisc was then used to stabilize the capsular bag using both Carmen and Drew capsule polishing instruments, the anterior capsular leaflet as well as the equator of the bag were cleaned to the greatest extent possible in all 360 degrees. At this point, the temporal incision was enlarged slightly and a Bausch and Lomb Trulign model BL1UT 18 diopter by a 1.25 diopter posterior chamber intraocular lens was then inserted into the capsular bag without difficulty. The irrigation aspiration instrument was then introduced to remove the remaining cortex as well as to position the intraocular lens in the appropriate orientation at the defined 170 degree axis. Once all remaining viscoelastic was then removed from the anterior chamber and in and around the intraocular lens slight pressure against the posterior capsule was applied to the anterior surface of the implant to lock its orientation within the capsular bag. At this point, the irrigation aspiration instrument was gently removed from the anterior chamber. The temporal incision was hydrated slightly with balanced salt solution and the eye was brought to normal intraocular pressures through the paracentesis port. To ensure watertight integrity, ReSure was used on the paracentesis as well as the temporal incision wounds. She then received 2 drops of 1% atropine, 2 drops of 0.5% timolol and 2 drops of moxifloxacin. The eye was then lightly patched and shielded in the usual manner. There were no complications from the procedure. She tolerated the procedure well and then was returned to recovery in good condition. MMODL / IJN: [id number] /
== END | disposition home or self-care (01) ==
LOC: OR 10:50
PROVIDERS: ATTEND Ophthalmology
DX: H25.811 Combined forms of age-related cataract, right eye (principal); H52.223 Regular astigmatism, bilateral; H43.811 Vitreous degeneration, right eye; H52.13 Myopia, bilateral; H52.4 Presbyopia; I10 Essential (primary) hypertension; H02.409 Unspecified ptosis of unspecified eyelid; H91.90 Unspecified hearing loss, unspecified ear; M19.90 Unspecified osteoarthritis, unspecified site; M41.9 Scoliosis, unspecified; Z88.2 Allergy status to sulfonamides; Z98.890 Other specified postprocedural states; Z79.899 Other long term (current) drug therapy; Z97.4 Presence of external hearing-aid; Z97.3 Presence of spectacles and contact lenses; Z83.518 Family history of other specified eye disorder; Z83.511 Family history of glaucoma; Z80.3 Family history of malignant neoplasm of breast; Z80.8 Family history of malignant neoplasm of other organs or systems; Z80.1 Family history of malignant neoplasm of trachea, bronchus and lung; Z83.3 Family history of diabetes mellitus; Z82.69 Family history of other diseases of the musculoskeletal system and connective tissue
CPT/HCPCS: 66984; V2787; C1780; J2250; J0171; J3010; J2001

== ENCOUNTER 2019-11-16 09:30 | Day surgery (SDC) | payer MEDICARE, OTHER ==
[2019-11-14 14:58] VITALS: BMI 32.8
[~2019-11-16 09:30] MED LIST changes: -BALANCED SALT IRRIG SOLN COMB2 15 ML IRRIG.SOLN INTRAOCULA ONE; -DEXAMETHASONE SOD PHOSPHATE 10 MG/ML 1 ML VIAL IV ONE; -EPINEPHrine (PF) 0.3 ML in BALANCED SALT IRRIG SOLN COMB2 500 ML IRRIGATION ONE; -HYALURONATE SODIUM INTRAOCULAR 1 EACH SYRINGE (12MG/ML) INTRAOCULA ONE; +LIDOCAINE 1% (10MG/ML) FOR IV START INTRADERMA PRN; -LIDOCAINE 1% (PF) 10MG/ML VIAL MISCELLANE ONE; -LIDOCAINE 1% 20 ML VIAL (10MG/ML) FOR IV START INTRADERMA PRN; -MIDAZOLAM 2 MG/2 ML VIAL ONE; -ONDANSETRON 4 MG/2 ML VIAL IVP ONE; -fentaNYL (PF) 50 MCG/ML 2 ML AMP ONE
[2019-11-16] MEDS: CYCLOPENTOLATE 1% OPHTH SOLN 2 ML BTL OP ONE ×3 (10:20→10:34)
[2019-11-16] MEDS: PHENYLEPHRINE 2.5% OPHTH DRP 2ML OP NR ×3 (10:24→10:39)
[2019-11-16 10:26] VITALS: RESP 16; TEMP 98.1
[2019-11-16] MEDS ORDERED: fentaNYL (PF) 50 MCG/ML 2 ML AMP ONE (11:08)
[2019-11-16] MEDS ORDERED: MIDAZOLAM 2 MG/2 ML VIAL ONE (11:08)
[2019-11-16] MEDS ORDERED: HYALURONATE SODIUM INTRAOCULAR 1 EACH SYRINGE (12MG/ML) INTRAOCULA ONE (11:25)
[2019-11-16] MEDS ORDERED: BALANCED SALT IRRIG SOLN COMB2 15 ML IRRIG.SOLN IRRIGATION ONE (11:26)
[2019-11-16] MEDS ORDERED: LIDOCAINE 1% (PF) 10MG/ML VIAL SQ ONE (11:26)
[2019-11-16] MEDS ORDERED: EPINEPHrine (PF) 0.3 ML in BALANCED SALT IRRIG SOLN COMB2 500 ML IRRIGATION ONE (11:28)
--- NOTE | 2019-11-16 12:03 | P.OP ---
Date of Procedure: 11/16/19 Preoperative Diagnosis: NS & CS Postoperative Diagnosis: same Procedure(s) Performed: PIOL, OS Implants: AO1UV 18.00 Anesthesia: MAC Surgeon: Rahat Baptiste Pathology: none sent Condition: stable Disposition: same day Indications for Procedure: blurry vision Operative Findings: no complications
[2019-11-16 12:21] VITALS: BP 122/61; PULSE 67
--- NOTE | 2019-11-17 07:34 | OP ---
OPERATIVE REPORT DATE OF SURGERY: November 16, 2019 SURGEON: Dr. Rahat Baptiste PREOPERATIVE DIAGNOSES: Nuclear sclerosis and cortical sclerosis. POSTOPERATIVE DIAGNOSES: Nuclear sclerosis and cortical sclerosis. OPERATION: Phacoemulsification of cataract and intraocular lens implant of the left eye. NARRATIVE: After obtaining the appropriate consent, the patient was brought to the operating room. There the patient was placed under cardiac monitoring, prepped and draped in the usual sterile manner. The patient was approached from the left temporal side. The 5.5 mm Naomi ring inked in gentian eulogio was placed centrally on the cornea. At the 11 o'clock position, a 1.1 mm keratome was used to create a paracentesis port. Through this opening, 1% Xylocaine MPF 50/50 mix with balanced salt solution was injected into the anterior chamber. This was followed by stabilization of the anterior chamber with Amvisc viscoelastic. At the 9 o'clock position, a 2.75 mm clayton keratome was used to create a self-scaling corneal flap incision in a Langerman fashion. Through this opening, a cystotome was introduced to begin a continuous tear capsulorrhexis which was completed using the Utrata forceps. Care was taken to ensure that the capsulorrhexis was at least the size of the jie on the anterior cornea. Hydrodissection and hydrodelineation of the lens was accomplished with balanced salt solution. Phacoemulsification of the lens utilizing phaco chop was accomplished in 11.34 seconds at 10% power. Addition Xylocaine MPF was instilled into the anterior chamber. This was followed by removal of the remaining cortex under irrigation and aspiration along with careful polishing of the posterior capsule in a capsule vacuum mode. Additional Amvisc viscoelastic was then used to stabilize the capsular bag, and the Bausch and Lomb Crystalens AO1UV 18.0 diopters intraocular lens was injected into the capsular bag without difficulty. The lens was rotated 270 degrees so that the haptics resided at the 6 and 12 o'clock positions, and all remaining viscoelastic was then removed from within the capsular bag and around the anterior chamber. The eye was brought to normal intraocular pressure through the paracentesis port along with slight hydration of the incision sites. Watertight integrity was confirmed using a fluorescein strip. The patient then received 2 drops of 0.5% timolol followed by 2 drops of Vigamox and 2 drops of 1% atropine. The patient was then lightly patched and shielded in the usual manner. There was no complications from the procedure. The patient tolerated the procedure well and was returned to outpatient recovery in good condition. MARLON / DIONNA: [id number] / MTDD
== END 2019-11-16 12:53 | disposition home or self-care (01) ==
LOC: OR 09:30
PROVIDERS: ATTEND Ophthalmology
DX: H25.12 Age-related nuclear cataract, left eye (principal); H25.012 Cortical age-related cataract, left eye; H43.811 Vitreous degeneration, right eye; H52.13 Myopia, bilateral; H52.223 Regular astigmatism, bilateral; H52.4 Presbyopia; I10 Essential (primary) hypertension; M19.90 Unspecified osteoarthritis, unspecified site; M54.5 Low back pain; M54.16 Radiculopathy, lumbar region; H91.90 Unspecified hearing loss, unspecified ear; M41.9 Scoliosis, unspecified; Z98.41 Cataract extraction status, right eye; Z96.1 Presence of intraocular lens; Z79.899 Other long term (current) drug therapy; Z88.2 Allergy status to sulfonamides; Z97.4 Presence of external hearing-aid; Z83.511 Family history of glaucoma; Z80.3 Family history of malignant neoplasm of breast; Z80.8 Family history of malignant neoplasm of other organs or systems; Z80.1 Family history of malignant neoplasm of trachea, bronchus and lung; Z83.3 Family history of diabetes mellitus; Z82.0 Family history of epilepsy and other diseases of the nervous system
CPT/HCPCS: 66984; V2632; V2788; J2250; J0171; J3010; J2001

== ENCOUNTER → 2020-02-22 | Outpatient (CLI) | payer MEDICARE, OTHER ==
[2020-02-22 08:00] VITALS: BP 117/80; PULSE 89; RESP 20; TEMP 98
--- NOTE | 2020-02-22 08:36 | P.HPOB ---
History of Present Illness H&P Date: 02/22/20 Chief Complaint: The patient is here for her routine gynecologic exam and ma mmogram. This is a 74-year-old with an LMP of 1988. The patient is without gynecologic complaints. Review of Systems She has gained about 11 pounds over the past year. She denies respiratory, cardiac and G.I. problems. She denies maltreatment or problems with falling. : she occasionally has a small amount of leakage immediately after voiding. Past Medical History Past Medical History: Eye Disorder, Hypertension, Musculoskeletal Disorder, Osteoarthritis (OA), Vascular Disorder Additional Past Medical History / Comment(s): LT SCIATIC PAIN. seasonal allergies and osteopenia. 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 She did have a cold knife conization of the cervix for a high-grade Pap smear in 2010. History of Any Multi-Drug Resistant Organisms: None Reported Past Surgical History: Orthopedic Surgery, Tubal Ligation Additional Past Surgical History / Comment(s): H/S, D&C and CKC of cervix 2010. RT ankle surgery CHILD. PAIN PROCEDURE. Colonoscopy 2002 and 2014. Donnelly teeth removed in 2015, cataract removed right eye Past Anesthesia/Blood Transfusion Reactions: Previous Problems w/ Anesthesia Additional Past Anesthesia/Blood Transfusion Reaction / Comment(s): HAD DIFFICULTY WAKING UP WITH ANESTHESIA Past Psychological History: No Psychological Hx Reported Smoking Status: Never smoker Past Alcohol Use History: Rare (3/Year) Past Drug Use History: None Reported Additional History: The patient is a since 1996 and is not seeing anybody at this time and is not sexually active. - Past Family History Sister(s) Family Medical History: Cancer Additional Family Medical History / Comment(s): RECTAL CA , MS Mother Family Medical History: Cancer Additional Family Medical History / Comment(s): BREAST CA Father Family Medical History: Cancer Additional Family Medical History / Comment(s): Prostate CA with bone CA. Brother(s) Family Medical History: Cancer Additional Family Medical History / Comment(s): LUNG CA Medications and Allergies Home Medications Medication Instructions Recorded Confirmed Type Calcium Carbonate/Vitamin D3 1 each PO DAILY 01/18/15 02/22/20 History [Calcium 600 + Vit D Tablet] Enalapril [Vasotec] 5 mg PO QAM 01/18/15 02/22/20 History Multivitamins, Thera [Theragran] 1 each PO DAILY 01/18/15 02/22/20 History Metoprolol Bunch/Hydrochlorothiaz 1 each PO DAILY 11/24/17 02/22/20 History [Metoprolol ER-Hctz 100-12.5 mg] Fish Oil/Dha/Epa [Fish Oil 1,200 1 each PO DAILY 11/30/18 02/22/20 History mg Fish Oil] Cholecalciferol (Vitamin D3) 125 mcg PO DAILY 11/14/19 02/22/20 History [Vitamin D3] Allergies Allergy/AdvReac Type Severity Reaction Status Date / Time Sulfa (Sulfonamide Allergy Swelling Verified 02/22/20 07:55 Antibiotics) Exam Vital Signs Temp Pulse Resp BP Pulse Ox 02/22/20 07:57 98.0 F 89 20 117/80 98 Intake and Output 02/21/20 02/22/20 02/22/20 22:59 06:59 14:59 Other: Weight 100.244 kg Height 5 feet 5 inches, weight 221 pounds, BMI 36.8. This is a well-developed well-nourished white female who is alert and oriented times 3 in no acute distress. HEENT: Within normal limits. NECK: Supple without mass or thyromegaly. CHEST AND LUNGS: Clear to auscultation. HEART: Regular rate and rhythm. BREASTS: Are without mass or discharge. AXILLARY EXAM: Negative for adenopathy. BACK: Negative for CVA tenderness. ABDOMEN: Soft, nontender, without palpable masses. PELVIC EXAM: Normal external genitalia with mild atrophy. Cervix and vagina appear normal with mild to moderate atrophy. The cervix is fairly flush with the back of the vagina consistent with her previous conization of the cervix with atrophy. There is no unusual discharge. There is no evidence of prolapse. The uterus is midposition, nongravid size and nontender. There are no palpable adnexal masses or tenderness. RECTAL EXAM: Rectovaginal exam is negative for mass or tenderness and is negative for occult blood. EXTREMITIES: Nontender. IMPRESSION: 1. 74-year-old menopausal female with normal gynecologic exam. 2. Previous abnormal Pap smears in the past including high-grade LAYLA in 2011 status post CKC showing benign polyp with low-grade changes. Also ASCUS Pap smear in 2018 with negative high-risk HPV testing. Her last Pap smear on 11/30/2018 was negative. 3. History of osteopenia. PLAN: 1. Pap smear was deferred since she had a negative one on 11/30/2018 with negative testing. We will plan on repeating Pap smear in 1-2 years and consider discontinuing Pap smears after 3 consecutive negative Pap smears. 2. Self breast awareness was discussed with the patient. 3. Screening mammogram will be done today. 4. Osteoporosis prevention was discussed. I have stressed the importance of adequate calcium, vitamin D and regular exercise. Recommended amounts of calcium and vitamin D were also discussed. We will plan on repeating bone density testing in 1-2 years and the patient is aware of this. 5. She did receive her flu shot last fall. 6. The patient was advised to return in 1-2 years for her well woman examination.
--- NOTE | 2020-02-23 11:04 | MM ---
Reason for exam: screening (asymptomatic). Last mammogram was performed 1 year and 3 months ago. History: Patient is postmenopausal. Family history of breast cancer in mother at age 52. Took hormonal contraceptives for 9 years. Physical Findings: A clinical breast exam by your physician is recommended on an annual basis and results should be correlated with mammographic findings. MG 3D Screening Mammo W/Cad Bilateral CC and MLO view(s) were taken. Prior study comparison: November 30, 2018, bilateral MG 3d screening mammo w/cad. November 24, 2017, bilateral MG 3d screening mammo w/cad. There are scattered fibroglandular densities. There is chronic nodularity in the left breast. There is no discrete abnormality. ASSESSMENT: Negative, BI-RAD 1 RECOMMENDATION: Routine screening mammogram of both breasts in 1 year.
== END | disposition home or self-care (01) ==
LOC: WWCWWP 07:47
PROVIDERS: ATTEND Obstetrics & Gynecology
DX: Z12.31 Encounter for screening mammogram for malignant neoplasm of breast (principal)
CPT/HCPCS: 77063; 77067

== ENCOUNTER → 2021-05-01 | Outpatient (CLI) | payer MEDICARE ==
[2021-05-01 09:27] VITALS: BP 108/75; PULSE 100; RESP 18; TEMP 97.9
--- NOTE | 2021-05-01 10:15 | P.HPOB ---
History of Present Illness H&P Date: 05/01/21 Chief Complaint: The patient is here for her routine gynecologic exam and ma mmogram. This is a 75-year-old with an LMP of 1988. The patient is without gynecologic complaints and denies any postmenopausal bleeding. She has a history of a cold knife conization for a high-grade LAYLA Pap smear in 2010. Pap smear in 2018 showed ASCUS, cotesting was negative in 2019. Review of Systems She has lost about 12 pounds over the past year. She denies respiratory, cardiac and G.I. problems. She denies maltreatment or problems with falling. : Occasional small amount of dribbling after voiding. Past Medical History Past Medical History: Eye Disorder, Hypertension, Musculoskeletal Disorder, Osteoarthritis (OA), Vascular Disorder Additional Past Medical History / Comment(s): LT SCIATIC PAIN. seasonal allergies and osteopenia. 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 She did have a cold knife conization of the cervix for a high-grade Pap smear in 2010. History of Any Multi-Drug Resistant Organisms: None Reported Past Surgical History: Orthopedic Surgery, Tubal Ligation Additional Past Surgical History / Comment(s): H/S, D&C and CKC of cervix 2010. RT ankle surgery CHILD. PAIN PROCEDURE. Colonoscopy 2002 and 2014. [place] teeth removed in 2015, cataract removed right eye Past Anesthesia/Blood Transfusion Reactions: Previous Problems w/ Anesthesia Additional Past Anesthesia/Blood Transfusion Reaction / Comment(s): HAD DIFFICULTY WAKING UP WITH ANESTHESIA Past Psychological History: No Psychological Hx Reported Smoking Status: Never smoker, Second hand smoke exposure Past Alcohol Use History: Rare (5 per year) Past Drug Use History: None Reported Additional History: She has been a since 1996 and is not sexually active. - Past Family History Sister(s) Family Medical History: Cancer Additional Family Medical History / Comment(s): RECTAL CA , MS Mother Family Medical History: Cancer Additional Family Medical History / Comment(s): BREAST CA Father Family Medical History: Cancer Additional Family Medical History / Comment(s): Prostate CA with bone CA. Brother(s) Family Medical History: Cancer Additional Family Medical History / Comment(s): LUNG CA Medications and Allergies Home Medications Medication Instructions Recorded Confirmed Type Calcium Carbonate/Vitamin D3 1 each PO DAILY 01/18/15 05/01/21 History [Calcium 600 + Vit D Tablet] Enalapril [Vasotec] 5 mg PO QAM 01/18/15 05/01/21 History Multivitamins, Thera [Theragran] 1 each PO DAILY 01/18/15 05/01/21 History Metoprolol Bunch/Hydrochlorothiaz 1 each PO DAILY 11/24/17 05/01/21 History [Metoprolol ER-Hctz 100-12.5 mg] Fish Oil/Dha/Epa [Fish Oil 1,200 1 each PO DAILY 11/30/18 05/01/21 History mg Fish Oil] Cholecalciferol (Vitamin D3) 125 mcg PO DAILY 11/14/19 05/01/21 History [Vitamin D3] Allergies Allergy/AdvReac Type Severity Reaction Status Date / Time Sulfa (Sulfonamide Allergy Swelling Verified 05/01/21 09:22 Antibiotics) Exam Vital Signs Temp Pulse Resp BP Pulse Ox 05/01/21 09:22 97.9 F 100 18 108/75 96 Intake and Output 04/30/21 05/01/21 05/01/21 22:59 06:59 14:59 Other: Weight 94.801 kg Height 5 feet 6 inches, weight 209 pounds, BMI 33.7. This is a well-developed well-nourished white female who is alert and oriented times 3 in no acute distress. HEENT: Within normal limits. NECK: Supple without mass or thyromegaly. CHEST AND LUNGS: Clear to auscultation. HEART: Regular rate and rhythm. BREASTS: Are without mass or discharge. AXILLARY EXAM: Negative for adenopathy. BACK: Negative for CVA tenderness. ABDOMEN: Soft, nontender, without palpable masses. PELVIC EXAM: Normal external genitalia with mild to moderate atrophy. Cervix and vagina appear to have mild to moderate atrophy. The cervix is nearly flush with the back of the vagina and stenotic consistent with her previous conization of the cervix. There are no cervical lesions. There is no unusual discharge. There is no evidence of prolapse. The uterus is midposition, nongravid size and nontender. There are no palpable adnexal masses or tenderness. RECTAL EXAM: Rectovaginal exam is negative for mass or tenderness and is negative for occult blood. EXTREMITIES: Nontender. IMPRESSION: 1. 75-year-old menopausal female with normal gynecologic exam. 2. Previous cold knife conization of the cervix for high-grade Pap smear in 2010. Cervical screening will be continued for at least 20 years past her conization. 3. History of osteopenia PLAN: 1. Pap smear was performed. 2. Self breast awareness was discussed with the patient. Symptoms associated with inflammatory breast cancer were also discussed. 3. Screening mammogram will be done today. 4. Osteoporosis prevention was discussed. I have stressed the importance of adequate calcium, vitamin D and regular exercise. Recommended amounts of calcium and vitamin D were also discussed. We will plan on repeating bone density testing next year. 5. She has completed her Covid vaccination series. 6. She was advised to return in one year for her annual well woman exam.
--- NOTE | 2021-05-02 12:16 | MM ---
Reason for exam: screening (asymptomatic). Last mammogram was performed 1 year and 2 months ago. History: Patient is postmenopausal. Family history of breast cancer in mother at age 52. Took hormonal contraceptives for 9 years. Physical Findings: A clinical breast exam by your physician is recommended on an annual basis and results should be correlated with mammographic findings. MG 3D Screening Mammo W/Cad Bilateral CC and MLO view(s) were taken. Prior study comparison: February 22, 2020, bilateral MG 3d screening mammo w/cad. November 30, 2018, bilateral MG 3d screening mammo w/cad. There are scattered fibroglandular densities. Stable benign calcifications. No significant changes when compared with prior studies. ASSESSMENT: Benign, BI-RAD 2 RECOMMENDATION: Routine screening mammogram of both breasts in 1 year.
== END ==
LOC: WWCWWP 09:13
PROVIDERS: ATTEND Obstetrics & Gynecology
DX: Z12.31 Encounter for screening mammogram for malignant neoplasm of breast (principal); Z01.419 Encounter for gynecological examination (general) (routine) without abnormal findings; Z87.39 Personal history of other diseases of the musculoskeletal system and connective tissue; I10 Essential (primary) hypertension; M19.90 Unspecified osteoarthritis, unspecified site; Z88.2 Allergy status to sulfonamides
CPT/HCPCS: 77063; 77067

== ENCOUNTER → 2022-02-05 | Outpatient (CLI) | payer MEDICARE ==
--- NOTE | 2022-02-05 14:18 | XR ---
EXAM TYPE: LUMBAR SPINE X RAY SERIES COMPARISON: 05/27/2016 HISTORY: Chronic back pain TECHNIQUE: 4 views are submitted. FINDINGS: Alignment is anatomic. The pedicles are intact. The transverse processes are intact. There is scol iotic curvature of the spine with multilevel severe degenerative disc disease and facet arthropathy. Vacuum disc at virtually all levels. Bilateral multilevel foraminal encroachment. SI joint arthropath y on the left noted. IMPRESSION: 1. Scoliosis with severe degenerative disc disease at all levels with multilevel foraminal encroachme nt.
== END | disposition home or self-care (01) ==
LOC: RADXRMAIN 14:03
PROVIDERS: ATTEND Family Medicine
DX: M51.36 Other intervertebral disc degeneration, lumbar region (principal); M41.87 Other forms of scoliosis, lumbosacral region
CPT/HCPCS: 72100

== ENCOUNTER → 2022-09-02 | Outpatient (CLI) | payer MEDICARE ==
--- NOTE | 2022-09-02 17:51 | BD ---
EXAMINATION TYPE: Axial Bone Density DATE OF EXAM: 09/02/2022 CLINICAL HISTORY: 76 years year old Female. ICD-10 CODE: Z78.0 ASYMPTOMATIC MENOPAUSAL STATE Height: 5 FT 5 IN Weight: 215 FRAX RISK QUESTIONS: Alcohol (3 or more units per day): NO Family History (Parent hip fracture): NO Glucocorticoids (More than 3mos): NO (Ex: prednisone, prednisolone, methylprednisolone, dexamethasone, and hydrocortisone). History of Fracture in Adulthood: NO Secondary Osteoporosis: 1. Type 1 Diabetes: NO 2. Hyperthyroidism: NO 3. Menopause before 45: NO 4. Malnutrition: NO 5. Chronic liver disease: NO Rheumatoid Arthritis: NO Current Tobacco Use: NO RISK FACTORS HISTORY OF: Surgery to Spine/Hip(right/left)/Wrist (right/left): NO Family History of Osteoporosis: NO Active: YES Diet low in dairy products/other sources of calcium: NO Postmenopausal woman: YES Take estrogen and/or progesterone medications: NO Lost more than 2 inches in height since high school: YES Frequent falls: NO Poor Health: GOOD Hyperparathyroidism: NO Adrenal Insufficiency: NO MEDICATIONS: Additional Medications: METOPROLOL, ADDERALL, Additional History: PT HAS SCOLIOSIS EXAM MEASUREMENTS: Bone mineral densitometry was performed using the [employer] System. Bone mineral density as measured about the Lumbar spine is: ----- L1-L4(G/cm2): 1.461 T Score Values are as follows: ----- L1: 1.9 ----- L2: 3.1 ----- L3: 1.9 ----- L4: 2.6 ----- L1-L4: 2.3 Bone mineral density has: DECREASED -5.4 % since study of: 2016 Bone mineral density about the R hip (g/cm2): 0.880 Bone mineral density about the L hip (g/cm2): 0.984 T Score values are as follows: -----R Neck: -1.1 -----L Neck: -0.4 -----R Total: -1.2 -----L Total: 0.4 Bone mineral density has: DECREASED -5.2 % since study of: 2016 FRAX%s: The graph provided illustrates a 9.2 % chance for a major osteoporotic fx and a 1.4 % chance for the hips probability for fx in 10 years time. IMPRESSION: Osteopenia (T Score between -2.5 and -1). There is slightly increased risk of fracture and the patient may be considered for treatment. Re-Screen 2-5 years. NOTE: T-SCORE=SD OF THE YOUNG ADULT MEAN.
--- NOTE | 2022-09-03 10:51 | MM ---
Reason for Exam: Screening (asymptomatic). Last mammogram was performed 1 year(s) and 4 month(s) ago. Patient History: Menarche at age 13. First Full-Term at age 29. Postmenopausal. Patient used Hormonal Contraceptives for 9 years. Mother had breast cancer, age 52. Risk Values: Ria 5 year model risk: 3.8%. NCI Lifetime model risk: 8.6%. Prior Study Comparison: 11/30/2018 Bilateral Screening Mammogram, [facility]. 02/22/2020 Bilateral Screening Mammogram, [facility]. 05/01/2021 Bilateral Screening Mammogram, [facility]. Tissue Density: There are scattered fibroglandular densities. Findings: Analyzed By CAD. There are some punctate calcifications within the inner mid right breast. No suspicious groups of microcalcifications, spiculated or lobular masses, architectural distortion or other secondary signs of malignancy are mammographically apparent. Overall Assessment: Benign, BI-RAD 2 Management: Screening Mammogram of both breasts in 1 year. A negative mammogram report should not preclude additional follow up of suspicious palpable abnormalities. Patient should continue monthly self breast exam. A clinical breast exam by your physician is recommended on an annual basis and results should be correlated with mammographic findings. Electronically signed and approved by: Benny Mcleod D.O. Radiologis
== END | disposition home or self-care (01) ==
LOC: RADMAMWWP 14:30
PROVIDERS: ATTEND Family Medicine
DX: Z12.31 Encounter for screening mammogram for malignant neoplasm of breast (principal); M85.89 Other specified disorders of bone density and structure, multiple sites; Z78.0 Asymptomatic menopausal state; Z80.3 Family history of malignant neoplasm of breast
CPT/HCPCS: 77063; 77067; 77080

== ENCOUNTER → 2023-08-20 | Outpatient (CLI) | payer MEDICARE ==
--- NOTE | 2023-08-20 10:11 | US ---
EXAMINATION TYPE: US venous doppler duplex LE RT DATE OF EXAM: 08/20/2023 10:03 AM COMPARISON: NONE CLINICAL INDICATION: Female, 77 years old with history of RLE; I80.9; rt leg swelling for 6 months. SIDE PERFORMED: Right TECHNIQUE: The lower extremity deep venous system is examined utilizing real time linear array sonog sabi with graded compression, doppler sonography and color-flow sonography. VESSELS IMAGED: Common Femoral Vein Deep Femoral Vein Greater Saphenous Vein * Femoral Vein Popliteal Vein Small Saphenous Vein * Proximal Calf Veins (* superficial vessels) Right Leg: Negative for DVT IMPRESSION: Grayscale, color doppler, spectral doppler imaging performed of the deep veins of the lo wer extremities. There is normal flow, compressibility, vascular waveforms.
== END | disposition home or self-care (01) ==
LOC: RADUSWWP 09:32
PROVIDERS: ATTEND Orthopaedic Surgery
DX: I80.9 Phlebitis and thrombophlebitis of unspecified site (principal)

== ENCOUNTER → 2023-09-04 | Outpatient (CLI) | payer MEDICARE ==
--- NOTE | 2023-09-07 13:49 | MM ---
Reason for Exam: Screening (asymptomatic). Last screening mammogram was performed 12 month(s) ago. Patient History: Menarche at age 13. First Full-Term at age 29. Postmenopausal. Patient used Hormonal Contraceptives for 9 years. Mother had breast cancer, age 52. Risk Values: Ria 5 year model risk: 3.8%. NCI Lifetime model risk: 8.1%. Prior Study Comparison: 02/22/2020 Bilateral Screening Mammogram, [facility]. 05/01/2021 Bilateral Screening Mammogram, [facility]. 09/02/2022 Bilateral MG 3D screening mammo w/cad, [facility]. Tissue Density: There are scattered fibroglandular densities. Findings: Analyzed By CAD. Some regional calcifications medial right breast are unchanged. Mole along the superior aspect of the outer left breast remains unchanged. There is no suspicious group of microcalcifications or new suspicious mass in either breast. Overall Assessment: Benign, BI-RAD 2 Management: Screening Mammogram of both breasts in 1 year. See note below in regards to patient's increased 5 year Ria score. Patient should continue monthly self-breast exams. A clinical breast exam by your physician is recommended on an annual basis. This exam should not preclude additional follow-up of suspicious palpable abnormalities. Note on Ria scores and lifetime risk: 1. A Ria score greater than 3% is considered moderate risk. If this is the case, consider specialist referral to assess eligibility for a risk reducing agent. 2. If overall lifetime risk for the development of breast cancer is 20% or higher, the patient may qualify for future screening with alternating mammogram and breast MRI. Electronically signed and approved by: Tristin Cruz M.D. Radiologist
== END | disposition home or self-care (01) ==
LOC: RADMAMWWP 09:52
PROVIDERS: ATTEND Family Medicine
DX: Z12.31 Encounter for screening mammogram for malignant neoplasm of breast (principal); Z78.0 Asymptomatic menopausal state; Z80.3 Family history of malignant neoplasm of breast
CPT/HCPCS: 77063; 77067

== ENCOUNTER → 2023-10-05 | Outpatient (CLI) | payer MEDICARE ==
[2023-10-05 13:04] LABS: Partial Thromboplastin Time 26.4 sec (22.0-30.0)
[2023-10-05 16:59] LABS: Prothrombin Time 10.6 sec (10.0-12.5)
[2023-10-05 18:39] LABS: HCT 49.2 % (37.2-46.3); HGB 16.3 g/dL (12.0-15.0); MCH 30.6 pg (27.0-32.0); MCHC 33.1 g/dL (32.0-37.0); MCV 92.5 FL (80.0-97.0); Mean Platelet Volume 12.2 FL (9.5-12.2); NRBC Per 100 WBC 0 X 10*3/uL (0.00-0.01); Platelet Count 218 X 10*3/uL (140-440); RBC 5.32 X 10*6/uL (4.10-5.20); RDW 12.3 % (11.5-14.5); WBC 8.36 X 10*3/uL (4.50-10.00)
[2023-10-05 18:58] LABS: ALT 20 U/L (8-44); AST 19 U/L (13-35); Albumin 4.1 g/dL (3.8-4.9); Albumin/Globulin Ratio 1.64 Ratio (1.60-3.17); Alkaline Phosphatase 97 U/L (41-126); BUN/Creat Ratio 27.22 Ratio (12.00-20.00); Blood Urea Nitrogen 24.5 mg/dL (9.0-27.0); Calcium 9.9 mg/dL (8.7-10.3); Carbon Dioxide 24.3 mmol/L (21.6-31.8); Chloride 105 mmol/L (96-109); Globulin 2.5 g/dL (1.6-3.3); Glucose 107 mg/dL (70-110); Potassium 4.7 mmol/L (3.5-5.5); Sodium 140 mmol/L (135-145); Total Bilirubin 0.4 mg/dL (0.3-1.2); Total Protein 6.6 g/dL (6.2-8.2)
== END | disposition home or self-care (01) ==
LOC: LABPAT 11:30
PROVIDERS: ATTEND Orthopaedic Surgery
DX: Z01.812 Encounter for preprocedural laboratory examination (principal); M17.11 Unilateral primary osteoarthritis, right knee; E11.9 Type 2 diabetes mellitus without complications; Z22.322 Carrier or suspected carrier of Methicillin resistant Staphylococcus aureus
CPT/HCPCS: 36415; 80053; 83036; 85027; 85610; 85730; 87070

== ENCOUNTER → 2023-10-05 | Outpatient (CLI) | payer MEDICARE ==
--- NOTE | 2023-10-05 11:45 | CT ---
INDICATION: Patient age:Female; 78 years old; Reason for study: [facility] Protocol for right knee replacement, M25.561 PAIN IN RIGHT KNEE; [facility]. COMPARISON: None TECHNIQUE: Thin section axial CT imaging of the entire right lower extremity was performed per [facility] protocol, wi thout the administration of IV contrast. Additional axial images of the bilateral hips and ankles wit h other knee were also obtained. Reformatted images in coronal and sagittal views obtained. FINDINGS: There is no evidence of acute fracture or dislocation. The hips are grossly unremarkable. Atrophy of the left hip gluteus minimus and medius musculature. Mild right knee osteoarthritic changes with joint space narrowing, spurring and subchondral cystic fo rmation identified. This is most prominent involving the lateral tibiofemoral compartment. No sizable joint effusion. The ankles grossly unremarkable. The visualized soft tissues appear grossly unremarkable within the limits of unenhanced CT. Pelvic phleboliths identified. Likely calcified peritoneal mice identified within the posterior pelvi s. IMPRESSION: 1. [facility] protocol for right knee joint replacement.
== END | disposition home or self-care (01) ==
LOC: RADCTMAIN 10:44
PROVIDERS: ATTEND Orthopaedic Surgery
DX: M17.11 Unilateral primary osteoarthritis, right knee (principal); M25.561 Pain in right knee; M79.661 Pain in right lower leg; R60.9 Edema, unspecified; Z96.651 Presence of right artificial knee joint

== ENCOUNTER 2023-10-16 08:25 | Day surgery (SDC) | payer MEDICARE ==
[~2023-10-16 08:25] MED LIST changes: -LACTATED RINGERS 1,000 ML IV SCH; -LIDOCAINE 1% (10MG/ML) FOR IV START INTRADERMA PRN; -MOXIFLOXACIN HCL 0.5% DROPS 3 ML BTL OP ONE; -TETRACAINE 0.5% OPHTH (PF) DROPS 4 ML BTL OP ONE; -TIMOLOL 0.5% OPHTH DROPS 5 ML BTL OP ONE; +TRANEXAMIC 1,000 MG/100ML-NACL 1,000 MG in SALINE 1 100ML.BAG IV PRN; +TRANEXAMIC 1,000 MG/100ML-NACL 1,000 MG in SALINE 1 100ML.BAG IVPB PRN
[2023-10-16] MEDS: LACTATED RINGERS 1,000 ML IV ONE ×2 (08:44→11:45)
[2023-10-16] MEDS: DEXAMETHASONE SOD PHOSPHATE 10 MG/ML 1 ML VIAL IV PRN (09:26)
[2023-10-16] MEDS: oxyCODONE ER 10 MG TAB.ER.12H PO PRN (09:26)
[2023-10-16] MEDS: DOCUSATE 100 MG CAP PO PRN (09:26)
[2023-10-16] MEDS: ACETAMINOPHEN TAB 500 MG TAB PO PRN (09:26)
[2023-10-16] MEDS: KETOROLAC 15 MG/ML 1 ML VIAL IVP PRN (09:26)
[2023-10-16] MEDS: FAMOTIDINE 20 MG/2 ML VIAL IVP PRN (09:26)
[2023-10-16] MEDS: ONDANSETRON 4 MG/2 ML VIAL IVP PRN (09:26)
[2023-10-16] MEDS: MIDAZOLAM 2 MG/2 ML VIAL IVP ONE (10:01)
[2023-10-16] MEDS: fentaNYL (PF) 50 MCG/ML 2 ML AMP IVP ONE (10:01)
[2023-10-16] MEDS ORDERED: MAGNESIUM HYDROXIDE 2,400 MG/30 ML CUP PO PRN (10:03)
[2023-10-16] MEDS ORDERED: NALOXONE 0.4 MG/ML 1 ML VIAL IV PRN (10:03)
[2023-10-16] MEDS ORDERED: HYDROmorphone 0.5 MG/0.5 ML SYRINGE IVP PRN ×3 (10:03)
[2023-10-16] MEDS ORDERED: NA PHOS,M-B/NA PHOS,DI-BA 133 ML ENEMA RECTAL PRN (10:03)
[2023-10-16] MEDS ORDERED: ONDANSETRON 4 MG/2 ML VIAL IVP PRN (10:03)
[2023-10-16] MEDS ORDERED: bisacodyL 10 MG SUPP RECTAL PRN (10:03)
[2023-10-16] MEDS ORDERED: HYDROcodone/APAP 7.5-325MG 1 EACH TAB PO PRN (10:06)
[2023-10-16] MEDS ORDERED: TRANEXAMIC 1,000 MG/100ML-NACL PREMIX BAG ONE (10:08)
[2023-10-16] MEDS ORDERED: MIDAZOLAM 2 MG/2 ML VIAL ONE (10:08)
[2023-10-16] MEDS ORDERED: NEOSTIGMINE 1 MG/ML 10 ML VIAL ONE (10:08)
[2023-10-16] MEDS ORDERED: ROCURONIUM 10 MG/ML (5 ML VIAL) IV ONE (10:08)
[2023-10-16] MEDS ORDERED: ESMOLOL 100 MG/10 ML VIAL ONE (10:08)
[2023-10-16] MEDS ORDERED: ePHEDrine 50 MG/ML 1 ML VIAL ONE (10:08)
[2023-10-16] MEDS ORDERED: PROPOFOL 10 MG/ML 20 ML VIAL IV ONE (10:08)
[2023-10-16] MEDS ORDERED: SODIUM CHLORIDE 0.9% (PF) 10 ML VIAL ONE (10:08)
[2023-10-16] MEDS ORDERED: ROPIVACAINE 5 MG/ML 30 ML VIAL ONE (10:08)
[2023-10-16] MEDS ORDERED: PHENYLEPHRINE-0.9% NACL SYG 1,000 MCG/10 ML SYRINGE ONE (10:08)
[2023-10-16] MEDS ORDERED: LIDOCAINE 1% INJ 10MG/ML (20 ML MDV) ONE (10:08)
[2023-10-16] MEDS ORDERED: GLYCOPYRROLATE 0.2 MG/ML 2 ML VIAL ONE (10:08)
[2023-10-16] MEDS ORDERED: SUCCINYLCHOLINE CHLORIDE 200 MG/10 ML VIAL IV ONE (10:08)
[2023-10-16] MEDS ORDERED: fentaNYL (PF) 50 MCG/ML 2 ML AMP ONE (10:08)
--- NOTE | 2023-10-16 10:34 | P.ANPRN ---
Procedure Note - Anesthesia - Nerve Block Performed Right Adductor Canal Infusion Time Out Performed: Yes (1000) Date of Procedure: 10/16/23 Procedure Start Time: 10:01 Procedure Stop Time: 10:06 Location of Patient: PreOp Indication: Acute Post-Operative Pain, Requested by Surgeon Specifically requested for management of pain by DrLarry: Haseeb Fink Sedation Type: Sedate with meaningful contact maintained Preparation: Sterile Prep Position: Supine Catheter: None Needle Types: Pajunk Needle Gauge: 21 Ultrasound used to visualize needle placement: Yes Ultrasound used to observe medication spread: Yes Injectate: 0.5% Ropivacaine (see comment for volume) (15cc + 10cc nacl pf) Blood Aspirated: No Pain Paresthesia on Injection Noted: No Resistance on Injection: Normal Image Stored and Saved: Yes Events: Uneventful and Well Tolerated
--- NOTE | 2023-10-16 10:35 | P.ANPRN ---
Procedure Note - Anesthesia - Nerve Block Performed Right iPack Single Time Out Performed: Yes (1000) Date of Procedure: 10/16/23 Procedure Start Time: 10:07 Procedure Stop Time: 10:10 Location of Patient: PreOp Indication: Acute Post-Operative Pain, Requested by Surgeon Specifically requested for management of pain by DrLarry: Haseeb Fink Sedation Type: Sedate with meaningful contact maintained Preparation: Sterile Prep Position: Supine Catheter: None Needle Types: Pajunk Needle Gauge: 21 Ultrasound used to visualize needle placement: Yes Ultrasound used to observe medication spread: Yes Injectate: 0.5% Ropivacaine (see comment for volume) (15cc+10cc nacl pf) Blood Aspirated: No Pain Paresthesia on Injection Noted: No Resistance on Injection: Normal Image Stored and Saved: Yes Events: Uneventful and Well Tolerated
[2023-10-16] MEDS: ROPIVACAINE/EPI/CLONIDINE/KET 50 ML SYRINGE MISCELLANE PRN (10:47)
--- NOTE | 2023-10-16 12:10 | P.OP ---
Date of Procedure: 10/16/23 Preoperative Diagnosis: Severe right knee osteoarthritis, mild valgus Postoperative Diagnosis: Same Procedure(s) Performed: 1. Right total knee arthroplasty 2. Computer assisted musculoskeletal navigation using CT/MRI images Implants: 1. [place] Triathlon CR Femur Size #4 2. Misbah Triathlon [place] Tibial Base Size #4 3. Misbah Triathlon CS poly Size #9 4. Misbah Triathlon all poly patella, Size #29 Anesthesia: TONYAA, regional Surgeon: Haseeb Fink P[employer] Maintenance Technician #1: Suzy Vargas Estimated Blood Loss (ml): 100 IV fluids (ml): 800 Pathology: none sent Condition: stable Disposition: PACU Indications for Procedure: I met with the patient preoperatively in the office setting and discussed treatment of their symptomatic knee arthritis. They failed a long course of nonsurgical treatment and elected to proceed with an elective total knee replacement. I discussed the potential risks and complications at length and gave them ample time to ask questions. Risks discussed included: risks from anesthesia, superficial site surgical infection, acute and/or chronic periprosthetic joint infection, delayed wound healing, drainage, wound necrosis, instability, stiffness, stiffness requiring manipulation and/or revision surgery, damage to local blood vessels or nerves, aseptic loosening of the implants, extensor mechanism issues including disruption, patellar maltracking, avascular necrosis etc., continued or worsened knee pain, generalized dissatisfaction with surgical outcome, need for revision surgery, an inability to regain preinjury level of function, DVT, PE, other medical complications, and possibly loss of life or limb. The patient voiced their understanding that while these are the most common complications other less common complications are possible. They provided both their verbal and written consent to go forward with surgery. Operative Findings: Severe lateral compartment arthritis with full thickness cartilage loss. Moderate patellofemoral and medial compartment arthritis. Description of Procedure: The patient was identified in preoperative holding and the correct operative extremity was verified and marked with a marker. I reviewed the consent form with the patient at length. All of their questions were answered. The patient was given a block by anesthesia. They were then brought back to the operating room. They were transferred onto the operating room table where a general anesthetic, preoperative antibiotics, and tranexamic acid were administered by anesthesia. A tourniquet was applied to the proximal aspect of the operative extremity. The contralateral extremity was padded under the heel and secured to the operating room table with a nonsterile blue towel and tape. The ipsilateral arm was carefully draped across the patient's chest and secured with a pillow and foam. A post was applied over the lateral aspect of the ipsilateral thigh and a bolster was placed under the ipsilateral foot. I verified that the operative extremity was stable and the knee was flexed to 90. The operative extremity was then placed in a leg burt, nonsterile drapes were applied, and the extremity was prepped and draped sterilely in the standard sterile fashion. Prior to starting surgery timeout was performed identifying the correct patient, operative extremity, and procedure. The leg was then elevated, exsanguinated with an Esmarch bandage, and the tourniquet was inflated. An anterior midline incision was made sharply with a scalpel. Once I had dissected deep to the superficial fascial layer medial and lateral flaps were elevated. A medial parapatellar arthrotomy was created. Upon opening the knee joint there were diffuse arthritic changes in all 3 compartments. The anterior horn of the medial meniscus were sharply released and a medial release was performed around the posterior medial corner of the knee to facilitate retractor placement. The fat pad was excised with electrocautery. The patella was found to be severely arthritic and a provisional cut was made with a sagittal saw to facilitate mobilization of the extensor mechanism during the procedure. Remnants of the ACL and PCL were then excised from the notch. 4 mm pins were then placed within the incision in the medial distal femur and proximal tibia. Arrays were applied to the pins and I verified they were completely tightened. The knee was then registered with the [employer] robot and manipulations in implant position were made to balance the knee and opitmize implant position. Using the Jose Luis robotic saw all cuts were made in accordance with our plan. After all bony fragments had been removed the cuts were verified with the planar probe. The tibia was then subluxed forward and sized. The knee was brought into flexion and a lamina production engineer was placed to allow removal of the meniscal remnants both medially and laterally as well as posterior osteophytes. Local anesthetic was then infiltrated around the joint capsule. Trial implants were then placed within the knee. Range of motion and collateral ligament tension was then evaluated. Adjustments in implant size and position were then made accordingly. Once the knee was felt to be appropriately balanced the Jose Luis pins were removed. The patella was then recut, sized, and punched. A trial patellar button was then placed. With the trial components in place, the patella tracked midline. The femur was then drilled and the trial component removed. The trial tibial component was then appropriately rotated, pinned, and prepared for the keel. All trial components were then removed from the knee. The knee was thoroughly irrigated with pulsatile lavage. Cement was prepared via vacuum mixing in a bowl on the back table. I then hand pressurized cement into the femur and tibia and placed the implants beginning with the tibial base tray and poly liner, femoral component, and finally the patellar button. All extruded cement was rem ava including from the pin sites. Once the cement had hardened the knee was evaluated one final time with the final polyethylene liner in place. The knee had full extension and flexion and felt stable to varus and valgus stress throughout the arc of motion. The tourniquet was released and with the tourniquet down the patella tracked midline. All bleeders were controlled with electrocautery. The knee was then soaked for 3 minutes with a dilute Betadine soak. The knee was thoroughly irrigated using 3 L of sterile saline and pulsatile lavage. The extensor mechanism was then reapproximated using pop off Vicryl sutures followed by a running barbed suture. The knee was then closed in layers with a 0 strata fix for the deep fascial layer, 2-0 strata fix for the superficial subcutaneous layer and Monocryl and Steri-Strips for the skin. A sterile dressing was applied. I verified that all instrument, sponge, and sharp counts were correct. The patient was then transferred off the operating room table, extubated, and brought to recovery having tolerated the procedure well. Suzy VELOZ was required as a skilled export sales assistant due to the complexity of the surgery for patient positioning, exposure, retraction, placement of implants, closure of wound, and application of dressing. PLAN: The patient can weight-bear as tolerated on the operative extremity. DVT prophylaxis with aspirin 81 mg twice a day based on preoperative risk stratification. Follow-up in the office in 2 weeks for wound check and x-rays of the knee including an AP and lateral.
--- NOTE | 2023-10-16 13:18 | XR ---
EXAMINATION TYPE: XR knee limited RT DATE OF EXAM: 10/16/2023 CLINICAL HISTORY: Postoperative evaluation Two views of the right knee are submitted. Identified are changes of total knee arthroplasty with femoral and tibial components appearing well seated. Postsurgical soft tissue changes are noted. Alignment is anatomic.
[2023-10-16] MEDS: SODIUM CHLORIDE 0.9% 1,000 ML IV SCH (15:17)
--- NOTE | 2023-10-16 15:30 | P.CONS ---
History of Present Illness - Reason for Consult Consult date: 10/16/23 - History of Present Illness History of present illness; patient 78-year-old lady with past medical history significant for hypertension, osteoarthritis brought to the hospital for elective right total knee arthroplasty. Patient has been following up outpatient with orthopedics for right knee pain, all conservative measures had failed and patient was scheduled for right knee arthroplasty. Postoperatively the internal medicine team were consulted for medical management REVIEW OF SYSTEMS: CONSTITUTIONAL: No fever, no malaise, no fatigue. HEENT: No recent visual problems or hearing problems. Denied any sore throat. CARDIOVASCULAR: No orthopnea, PND, no palpitations, no syncope. PULMONARY: No shortness of breath GASTROINTESTINAL: No diarrhea, no nausea, no vomiting, no abdominal pain. NEUROLOGICAL: No headaches, no weakness, no numbness. HEMATOLOGICAL: Denies any bleeding or petechiae. GENITOURINARY: Denies any burning micturition, frequency, or urgency. MUSCULOSKELETAL/RHEUMATOLOGICAL: Right knee pain ENDOCRINE: Denies any polyuria or polydipsia. The rest of the 14-point review of systems is negative. PHYSICAL EXAMINATION: GENERAL: The patient is alert and oriented x3, not in any acute distress. Well developed, well nourished. HEENT: Pupils are round and equally reacting to light. EOMI. No scleral icterus. No conjunctival pallor. Normocephalic, atraumatic. No pharyngeal erythema. No thyromegaly. CARDIOVASCULAR: S1 and S2 present. No murmurs, rubs, or gallops. PULMONARY: Chest is clear to auscultation, no wheezing or crackles. ABDOMEN: Soft, nontender, nondistended, normoactive bowel sounds. No palpable organomegaly. MUSCULOSKELETAL: No joint swelling or deformity. EXTREMITIES: No cyanosis, clubbing, or pedal edema. Right knee surgical incision seen NEUROLOGICAL: Gross neurological examination did not reveal any focal deficits. SKIN: No rashes. Assessment and plan Severe right knee osteoarthritis s/p right total knee arthroplasty Hypertension Monitor vital signs Monitor CBC Continue pain management per orthopedics Continue DVT prophylaxis per orthopedics Resume home meds PT and OT consulted Labs and medication were reviewed.. Continue same treatment. Continue with symptomatic treatment. Resume home medication. Monitor labs and vitals. DVT and GI prophylaxis. Further recommendations as per clinical course of the patient Dictation was produced using [employer] dictation software. please excuse any grammatical, word or spelling errors. Past Medical History Past Medical History: Eye Disorder, Hypertension, Musculoskeletal Disorder, Osteoarthritis (OA), Vascular Disorder Additional Past Medical History / Comment(s): LT SCIATIC PAIN. seasonal allergies and osteopenia. dry eyes, History of Any Multi-Drug Resistant Organisms: None Reported Past Surgical History: Orthopedic Surgery, Tubal Ligation Additional Past Surgical History / Comment(s): H/S, D&C and CKC of cervix 2010. RT ankle surgery PAIN PROCEDURE. Colonoscopy 2002 and 2014. [place] teeth removed in 2016, cataract removed right eye Past Anesthesia/Blood Transfusion Reactions: Previous Problems w/ Anesthesia Additional Past Anesthesia/Blood Transfusion Reaction / Comm: HAD DIFFICULTY WAKING UP WITH ANESTHESIA Smoking Status: Never smoker, Second hand smoke exposure - Past Family History Sister(s) Family Medical History: Cancer Additional Family Medical History / Comment(s): RECTAL CA , MS Mother Family Medical History: Cancer Additional Family Medical History / Comment(s): BREAST CA Father Family Medical History: Cancer Additional Family Medical History / Comment(s): Prostate CA with bone CA. Brother(s) Family Medical History: Cancer Additional Family Medical History / Comment(s): LUNG CA Medications and Allergies Home Medications Medication Instructions Recorded Confirmed Type Calcium Carbonate/Vitamin D3 1 each PO DAILY 01/18/15 10/16/23 History [Calcium 600 + Vit D Tablet] Multivitamins, Thera [Theragran] 1 each PO DAILY 01/18/15 10/16/23 History Metoprolol Bunch/Hydrochlorothiaz 1 each PO DAILY 11/24/17 10/16/23 History [Metoprolol ER-Hctz 100-12.5 mg] Fish Oil/Dha/Epa [Fish Oil 1,200 1 each PO DAILY 11/30/18 10/16/23 History mg Fish Oil] Cholecalciferol (Vitamin D3) 125 mcg PO DAILY 11/14/19 10/16/23 History [Vitamin D3] Cequa 1 drop BOTH EYES BID 10/08/23 10/16/23 History Meloxicam 7.5 mg PO BID 10/08/23 10/16/23 History amLODIPine BESYLATE 5 mg PO DAILY 10/08/23 10/16/23 History Aspirin [Adult Low Dose Aspirin EC] 81 mg PO BID 30 Days #60 tab 10/16/23 Rx Diclofenac Sodium [Voltaren] 75 mg PO BID #60 tab 10/16/23 Rx HYDROcodone/APAP 7.5-325MG [[place] 1 - 2 tab PO Q6H PRN #32 tab 10/16/23 Rx 7.5-325] Omeprazole [PriLOSEC] 20 mg PO DAILY #30 cap 10/16/23 Rx Sennosides [Senokot] 2 tab PO DAILY PRN #60 tablet 10/16/23 Rx Allergies Allergy/AdvReac Type Severity Reaction Status Date / Time Sulfa (Sulfonamide Allergy Swelling Verified 10/16/23 09:11 Antibiotics) Physical Exam Vitals: Vital Signs Temp Pulse Resp BP Pulse Ox 10/16/23 14:00 97 16 147/63 96 10/16/23 13:30 99 16 149/62 96 10/16/23 13:15 99 16 155/72 94 L 10/16/23 13:00 100 16 157/76 94 L 10/16/23 12:45 102 H 16 156/76 92 L 10/16/23 12:30 97.3 F L 95 14 149/72 95 10/16/23 10:07 94 16 136/85 98 10/16/23 09:11 97 F L 100 16 171/84 98 Intake and Output 10/16/23 10/16/23 10/16/23 06:59 14:59 22:59 Intake Total 1350 Output Total 100 Balance 1250 Intake: IV 1350 Output: Estimated Blood Loss 100 Other: Weight 96.3 kg
[2023-10-16] MEDS: SENNOSIDES-DOCUSATE SODIUM 1 EACH TAB PO SCH (20:15)
[2023-10-16] MEDS: HYDROcodone/APAP 7.5-325MG 1 EACH TAB PO PRN (20:15)
[2023-10-16] MEDS: ASPIRIN 81 MG PO SCH (20:15)
--- NOTE | 2023-10-17 08:15 | P.PN ---
Subjective Progress Note Date: 10/17/23 Doing well this morning. Pain is adequately controlled. Objective - Vital Signs Vital signs: Vital Signs Temp 97.8 F 10/17/23 06:55 Pulse 94 10/17/23 06:55 Resp 17 10/17/23 06:55 BP 124/75 10/17/23 06:55 Pulse Ox 95 10/17/23 06:55 FiO2 Intake & Output 10/16/23 10/17/23 10/17/23 18:59 06:59 18:59 Intake Total 1350 900 Output Total 100 3 Balance 1250 897 Weight 96.3 kg Intake: IV 1350 Oral 900 Output: Urine 3 Estimated Blood Loss 100 Other: Voiding Method Toilet # Voids 2 - Exam The patient is resting comfortably in the bed. A focused examination of the operative leg was conducted. Some bleeding into the dressing which was changed. The incision was intact with no active drainage or bleeding. A new dressing was applied. The thigh and calf are soft. Femoral nerve function is intact. Motor and sensory function are intact in the foot and ankle. The tips of the toes are warm and well perfused with brisk capillary refill. Assessment and Plan Assessment: Postoperative day #1 status post right total knee arthroplasty Plan: 1. Weightbearing as tolerated on the operative extremity. Up with assistance. 2. DVT prophylaxis with aspirin 81 mg twice a day 3. Physical therapy for gait training and mobilization 4. Internal medicine for perioperative medical management 5. PT for gait training 6. Disposition: Plan for discharge home tomorrow when pain is controlled and the patient has passed physical therapy. If she does well and would like to discharge home today she can do so.
[2023-10-17 08:23] VITALS: BP 124/75; PULSE 94; RESP 17; TEMP 97.8
[2023-10-17 08:36] LABS: Basophils % (A) 0 %; Eosinophils % (A) 0 %; HCT 42.3 % (34.0-46.0); HGB 14.1 gm/dL (11.4-16.0); Lymphocytes # (A) 1.1 k/uL (1.0-4.8); Lymphocytes % (A) 6 %; MCH 31.5 pg (25.0-35.0); MCHC 33.4 g/dL (31.0-37.0); MCV 94.4 fL (80.0-100.0); Mean Platelet Volume 10.1; Monocytes % (A) 5 %; Neutrophils # (A) 17.2 k/uL (1.3-7.7); Neutrophils % (A) 88 %; Platelet Count 221 k/uL (150-450); RBC 4.48 m/uL (3.80-5.40); RDW 12.9 % (11.5-15.5); WBC 19.6 k/uL (3.8-10.6)
[2023-10-17] MEDS ORDERED: NON FORMULARY DRUG (Fish Oil/Dha/Epa [Fish Oil 1,200 Mg Fish Oil] 1 EACH Capsule) PO SCH (09:00)
[2023-10-17] MEDS ORDERED: HYDROCHLOROTHIAZ PO SCH (09:00)
[2023-10-17] MEDS ORDERED: [UNRECOGNIZED DRUG - OTHER] PO SCH (09:00)
[2023-10-17] MEDS ORDERED: METOPROLOL SU PO SCH (09:00)
[2023-10-17] MEDS: CHOLECALCIFEROL 125 MCG (5000 IU) TABLET PO SCH (09:04)
[2023-10-17] MEDS: amLODIPine 5 MG TAB PO SCH (09:04)
[2023-10-17] MEDS: METOPROLOL SUCCINATE (ER) 100 MG TAB.ER.24H PO SCH (09:04)
[2023-10-17] MEDS: MULTIVITAMINS, THERA 1 EACH TAB PO SCH (09:04)
[2023-10-17] MEDS: CALCIUM CARB-VIT D 500 MG-5 MCG TAB PO SCH (09:04)
[2023-10-17] MEDS: hydroCHLOROthiazide 12.5 MG CAP PO SCH (09:04)
--- NOTE | 2023-10-17 12:07 | P.DS ---
Providers Date of admission: Thursday10/16/2023 Attending physician: Haseeb Fink Consults: 10/16/23 10:03 Consult Physician Routine Consulting Provider: Momo Hussein Consult Reason/Comments: medical management Do you want consulting provider notified?: Already Contacted Primary care physician: Karthik Coates Hospital Course: The patient was admitted and taken to the OR yesterday. Following an un complicated surgery, she was transferred to the ortho floor. She had 2 doses of antibiotics. She was started on ASA 81 mg bid for DVT prophylaxis. She was seen by me POD1 and was doing well. Her dressing was changed. She did well with PT and wanted to go home. She was seen and evaluated post-operatively by IM. Plan - Discharge Summary Discharge Rx Participant: Yes New Discharge Prescriptions: New Aspirin [Adult Low Dose Aspirin EC] 81 mg PO BID 30 Days #60 tab HYDROcodone/APAP 7.5-325MG [[place] 7.5-325] 1 - 2 tab PO Q6H PRN #32 tab PRN Reason: Pain Sennosides [Senokot] 2 tab PO DAILY PRN #60 tablet PRN Reason: Constipation Omeprazole [PriLOSEC] 20 mg PO DAILY #30 cap Diclofenac Sodium [Voltaren] 75 mg PO BID #60 tab No Action Multivitamins, Thera [Theragran] 1 each PO DAILY Calcium Carbonate/Vitamin D3 [Calcium 600 + Vit D Tablet] 1 each PO DAILY Metoprolol Bunch/Hydrochlorothiaz [Metoprolol ER-Hctz 100-12.5 mg] 1 each PO DAILY Fish Oil/Dha/Epa [Fish Oil 1,200 mg Fish Oil] 1 each PO DAILY Cholecalciferol (Vitamin D3) [Vitamin D3] 125 mcg PO DAILY amLODIPine BESYLATE 5 mg PO DAILY Meloxicam 7.5 mg PO BID Cequa 1 drop BOTH EYES BID Discharge Medication List Calcium Carbonate/Vitamin D3 [Calcium 600 + Vit D Tablet] 1 each PO DAILY 01/18/15 [History] Multivitamins, Thera [Theragran] 1 each PO DAILY 01/18/15 [History] Metoprolol Bunch/Hydrochlorothiaz [Metoprolol ER-Hctz 100-12.5 mg] 1 each PO DAILY 11/24/17 [History] Fish Oil/Dha/Epa [Fish Oil 1,200 mg Fish Oil] 1 each PO DAILY 11/30/18 [History] Cholecalciferol (Vitamin D3) [Vitamin D3] 125 mcg PO DAILY 11/14/19 [History] Cequa 1 drop BOTH EYES BID 10/08/23 [History] Meloxicam 7.5 mg PO BID 10/08/23 [History] amLODIPine BESYLATE 5 mg PO DAILY 10/08/23 [History] Aspirin [Adult Low Dose Aspirin EC] 81 mg PO BID 30 Days #60 tab 10/16/23 [Rx] Diclofenac Sodium [Voltaren] 75 mg PO BID #60 tab 10/16/23 [Rx] HYDROcodone/APAP 7.5-325MG [[place] 7.5-325] 1 - 2 tab PO Q6H PRN #32 tab 10/16/23 [Rx] Omeprazole [PriLOSEC] 20 mg PO DAILY #30 cap 10/16/23 [Rx] Sennosides [Senokot] 2 tab PO DAILY PRN #60 tablet 10/16/23 [Rx] Follow up Appointment(s)/Referral(s): Mouna Resendiz MD [REFERRING] - 1 Week [facility] Nurse, [NON-STAFF] - 1-2 Days Haseeb Fink MD [Medical Doctor] - 2 Weeks Activity/Diet/Wound Care/Special Instructions: 1. Weight-bear as tolerated on your operative extremity unless instructed otherwise. Use a walker or other assistive device to ambulate. 2. Leave surgical dressing in place. If your dressing becomes saturated with blood, there is drainage, or the dressing becomes loose please contact the office. 3. It is okay to shower with your surgical dressing, but do not submerge in water (no hot tubs, bath's, swimming etc.) 4. Make sure to take her blood clot prevention medication as prescribed (aspirin, Eliquis, Xarelto, and Plavix are commonly prescribed medications for blood clot prevention) 5. While taking R[place] or Percocet for pain make sure you're taking a stool softener (Colace) and drink lots of water. 6. Keep all follow-up appointments as scheduled. You will usually be seen in 1-2 weeks following surgery. 7. Please contact the office with any questions or concerns [phone] Discharge Disposition: HOME WITH HOME HEALTH SERVICES
--- NOTE | 2023-10-17 12:39 | P.PN ---
Subjective Progress Note Date: 10/17/23 patient 78-year-old lady with past medical history significant for hypertension, osteoarthritis brought to the hospital for elective right total knee arthroplasty. Patient has been following up outpatient with orthopedics for right knee pain, all conservative measures had failed and patient was scheduled for right knee arthroplasty. Postoperatively the internal medicine team were consulted for medical management 10/17. Patient seen and examined. Pain is under control. Orthopedic has cleared the patient for discharge. REVIEW OF SYSTEMS: CONSTITUTIONAL: No fever, no malaise,. CARDIOVASCULAR: No chest pain, no palpitations, no syncope. PULMONARY: No shortness of breath, no cough, GASTROINTESTINAL: No diarrhea, no nausea, no vomiting, no abdominal pain. NEUROLOGICAL: No headaches, no weakness, PHYSICAL EXAMINATION: GENERAL: The patient is alert and oriented x3, not in any acute distress. Well developed, well nourished. HEENT: Pupils are round and equally reacting to light. EOMI. No scleral icterus. No conjunctival pallor. Normocephalic, atraumatic. No pharyngeal erythema. No th yromegaly. CARDIOVASCULAR: S1 and S2 present. No murmurs, rubs, or gallops. PULMONARY: Chest is clear to auscultation, no wheezing or crackles. ABDOMEN: Soft, nontender, nondistended, normoactive bowel sounds. No palpable organomegaly. MUSCULOSKELETAL: Right knee surgical incisions EXTREMITIES: No cyanosis, clubbing, or pedal edema. NEUROLOGICAL: Gross neurological examination did not reveal any focal deficits. SKIN: No rashes. Assessment and plan Severe right knee osteoarthritis s/p right total knee arthroplasty Hypertension Monitor vital signs Monitor CBC Continue pain management per orthopedics Continue DVT prophylaxis per orthopedics Continue home meds Patient medically stable for discharge Labs and medication were reviewed.. Continue same treatment. Continue with symptomatic treatment. Resume home medication. Monitor labs and vitals. DVT and GI prophylaxis. Further recommendations as per clinical course of the patient Dictation was produced using [employer] dictation software. please excuse any grammatical, word or spelling errors. Objective - Vital Signs Vital signs: Vital Signs Temp 97.8 F 10/17/23 06:55 Pulse 94 10/17/23 06:55 Resp 17 10/17/23 06:55 BP 124/75 10/17/23 06:55 Pulse Ox 95 10/17/23 06:55 FiO2 Intake & Output 10/16/23 10/17/23 10/17/23 18:59 06:59 18:59 Intake Total 1350 900 Output Total 100 3 Balance 1250 897 Weight 96.3 kg Intake: IV 1350 Oral 900 Output: Urine 3 Estimated Blood Loss 100 Other: Voiding Method Toilet # Voids 2 3 - Labs CBC & Chem 7: 10/17/23 06:45 Labs: Abnormal Lab Results - Last 24 Hours (Table) 10/17/23 Range/Units 06:45 WBC 19.6 H (3.8-10.6) k/uL Neutrophils # 17.2 H (1.3-7.7) k/uL
== END 2023-10-17 14:35 | disposition home health service (06) ==
LOC: OR 08:25 → 4SSUR 14:04 → OR 10-17 14:35
PROVIDERS: ATTEND Orthopaedic Surgery
DX: M17.11 Unilateral primary osteoarthritis, right knee (principal); G89.18 Other acute postprocedural pain; I10 Essential (primary) hypertension; M85.50 Aneurysmal bone cyst, unspecified site; Z98.51 Tubal ligation status; Z80.3 Family history of malignant neoplasm of breast; Z80.1 Family history of malignant neoplasm of trachea, bronchus and lung; Z79.899 Other long term (current) drug therapy; Z79.82 Long term (current) use of aspirin
CPT/HCPCS: 0055T; 27447; 64447; 64999; 85025

== ENCOUNTER → 2023-11-19 | Outpatient (CLI) | payer MEDICARE ==
--- NOTE | 2023-11-21 16:44 | US ---
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 No hydronephrosis on either side. 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 2. A 3.4 cm right posterior bladder wall diverticulum.
== END | disposition home or self-care (01) ==
LOC: RADUSWWP 14:55
PROVIDERS: ATTEND Family Medicine
DX: R35.0 Frequency of micturition (principal); K57.90 Diverticulosis of intestine, part unspecified, without perforation or abscess without bleeding
CPT/HCPCS: 76770

== ENCOUNTER 2024-07-01 08:55 | Day surgery (SDC) | payer MEDICARE ==
[~2024-07-01 08:55] MED LIST changes: +LIDOCAINE 1% (10MG/ML) FOR IV START INTRADERMA PRN; +MIDAZOLAM 2 MG/2 ML VIAL IV PRN; -TRANEXAMIC 1,000 MG/100ML-NACL 1,000 MG in SALINE 1 100ML.BAG IV PRN; -TRANEXAMIC 1,000 MG/100ML-NACL 1,000 MG in SALINE 1 100ML.BAG IVPB PRN; +fentaNYL (PF) 50 MCG/ML 2 ML AMP IVP PRN
[2024-07-01] MEDS: LACTATED RINGERS 1,000 ML IV SCH (09:53)
[2024-07-01] MEDS: IV FLUID CONTINUATION 1,000 ML IV ONE ×2 (09:53→11:37)
[2024-07-01] MEDS: ONDANSETRON 4 MG/2 ML VIAL IVP ONE (09:55)
[2024-07-01] MEDS: DEXAMETHASONE SOD PHOSPHATE 4 MG/ML 1 ML VIAL IV ONE (09:56)
[2024-07-01] MEDS ORDERED: LIDOCAINE 1% INJ 10MG/ML (20 ML MDV) ONE (10:10)
[2024-07-01] MEDS ORDERED: PROPOFOL 10 MG/ML 20 ML VIAL IV ONE (10:10)
[2024-07-01] MEDS ORDERED: MIDAZOLAM 2 MG/2 ML VIAL ONE (10:10)
[2024-07-01] MEDS ORDERED: fentaNYL (PF) 50 MCG/ML 2 ML AMP ONE (10:10)
[2024-07-01] MEDS ORDERED: PHENYLEPHRINE-0.9% NACL SYG 1,000 MCG/10 ML SYRINGE ONE (10:10)
[2024-07-01] MEDS: ceFAZolin 1,000 MG in SODIUM CHLORIDE 0.9% 1,000 ML IRRIGATION ONE (10:15)
[2024-07-01] MEDS: BUPIVACAINE (PF) 0.25% 30 ML VIAL SQ ONE (10:26)
[2024-07-01 11:24] VITALS: TEMP 97.1
[2024-07-01] MEDS: HYDROmorphone 0.5 MG/0.5 ML SYRINGE IVP PRN (11:36)
--- NOTE | 2024-07-01 11:40 | P.OP ---
Date of Procedure: 07/01/24 Preoperative Diagnosis: 1. Subluxation second and third metatarsal phalangeal joint right foot 2. Hammertoe second and third digits right foot Postoperative Diagnosis: 1. Same 2. Same Procedure(s) Performed: 1. Second and third metatarsal osteotomies right foot 2. Hammertoe correction second and third digits right foot Implants: Medline 2.5 mm cannulated hammertoe screws 2 Anesthesia: RENETTA Surgeon: Mj Valente Estimated Blood Loss (ml): 1 Pathology: none sent Condition: stable Disposition: PACU Description of Procedure: The patient was brought into the operating room and placed on table supine position. Timeout was taken to confirm correct patient identifiers, correct laterality surgery, and correct procedure. Once all staff in the room were in agreement with the timeout, the patient was induced and placed under general anesthesia. A well-padded tourniquet was placed on the right ankle and a bump beneath the right hip to internally rotate the right leg. Then 20 mL of 0.25% Marcaine was injected as a forefoot block as well as well as a posterior tibial nerve block. The right foot was prepped and draped in usual manner. The right foot was exsanguinated and the tourniquet inflated to 250 mmHg. Under direct fluoroscopic visualization, a metallic marker was used to outline the neck of the metatarsals. A small stab incision was made over the neck of the second and third metatarsals. Blunt dissection was done down to the level of the metatarsal necks. A 2.2 mm rotary bur was then inserted and used to create an osteotomy at the neck of the metatarsals. The osteotomy was oriented from a distal lateral to proximal medial direction. Once the osteotomies were completed, blunt instrument was used to shift the metatarsals medially and proximally. Once that was completed the angular deformities at the metatarsal phalangeal joints were resolved and the digits applied in a more rectus position. However there was still flexion contractures of the proximal interphalangeal joints of the second and third digits, therefore corrections of the hammertoe proceeded. Linear incisions are made over the proximal interphalangeal joints of both digits. The incisions were deepened down to the subcutaneous tissue careful to identify, avoid, and retract any neurovascular structures and cauterize any bleeding vessels. A transverse incision was made through the capsule and collateral ligaments of the proximal interphalangeal joint so that the head of the phalanx could be observed. A saw was then used to resect the heads of the proximal phalanges of both digits. A Portion of bone was removed from the surgical field. A Joshua was used to remove the articular cartilage of the base of the middle phalanx of the second and third digits. A guidewire for a 2.5 mm hammertoe screw was placed into the canal the proximal p halanx. The wire was removed and inserted at the base of the middle phalanx and advanced out the distal aspect of the digit. The wires realigned with the pilot submersible proximal phalanx and advanced to the base. Fluoroscopy confirmed that the wire was in proper alignment both on AP and lateral views of both digits. A small stab incision was made over the entry point of the wire at the distal tip of the digit. A 2.5 mm hammertoe screw was inserted over the wire and advanced until the head engaged the distal phalanx. Final fluoroscopic imaging showed rectus alignment of the second and third digits and proper placement of hardware. All wounds thoroughly irrigated with antibiotic saline. The skin closed with 3-0 nylon. Nonadherent gauze and a dry sterile dressing applied the right foot. Tourniquet was released and capillary refill return to all digits on the right foot.
[2024-07-01 12:18] VITALS: BP 135/85; PULSE 63; RESP 16
== END 2024-07-01 13:03 | disposition home or self-care (01) ==
LOC: OR 08:55
PROVIDERS: ATTEND Podiatrist
DX: M20.41 Other hammer toe(s) (acquired), right foot (principal); I10 Essential (primary) hypertension; M54.50 Low back pain, unspecified; Z88.2 Allergy status to sulfonamides; Z79.899 Other long term (current) drug therapy
CPT/HCPCS: 28308; 28285; C1713; J2250; J1100; J0690 ×2; J2405; J2003; J3010; J2704; J1171; J2371; J0665

== ENCOUNTER → 2024-10-07 | Outpatient (CLI) | payer MEDICARE ==
--- NOTE | 2024-10-07 10:47 | MM ---
Reason for Exam: Screening (asymptomatic). Last mammogram was performed 1 year(s) and 1 month(s) ago. Patient History: Menarche at age 13. First Full-Term at age 29. Postmenopausal. Mother had breast cancer, age 52. Risk Values: Ria 5 year model risk: 3.8%. NCI Lifetime model risk: 7.1%. Prior Study Comparison: 05/01/2021 Bilateral Screening Mammogram, [facility]. 09/02/2022 Bilateral MG 3D screening mammo w/cad, [facility]. 09/04/2023 Bilateral MG 3D screening mammo w/cad, [facility]. Tissue Density: The breasts are almost entirely fatty. Findings: Analyzed By CAD. Right breast: There is no suspicious group of microcalcifications or new suspicious mass. Benign-appearing calcifications right breast. Left breast: There is no suspicious group of microcalcifications or new suspicious mass. Overall Assessment: Benign, BI-RAD 2 Management: Screening Mammogram of both breasts in [address] [facility] will attempt to contact patient to return for supplemental views and ultrasound if indicated. Patient should continue monthly self-breast exams. A clinical breast exam by your physician is recommended on an annual basis. This exam should not preclude additional follow-up of suspicious palpable abnormalities. Note on Ria scores and lifetime risk: 1. A Ria score greater than 3% is considered moderate risk. If this is the case, consider specialist referral to assess eligibility for a risk reducing agent. 2. If overall lifetime risk for the development of breast cancer is 20% or higher, the patient may qualify for future screening with alternating mammogram and breast MRI. [facility], , 10/07/2024 10:44 AM. Electronically signed and approved by: Otto Argueta DO
== END | disposition home or self-care (01) ==
LOC: RADMAMWWP 10:09
PROVIDERS: ATTEND Family Medicine
DX: Z12.31 Encounter for screening mammogram for malignant neoplasm of breast (principal); Z78.0 Asymptomatic menopausal state; R92.313 Mammographic fatty tissue density, bilateral breasts; R92.1 Mammographic calcification found on diagnostic imaging of breast; Z80.3 Family history of malignant neoplasm of breast
CPT/HCPCS: 77063; 77067